=== PATIENT | male | born 1950 | race Caucasian/White ===

== ENCOUNTER 2023-01-25 15:01 | Outpatient (REF) | payer OTHER, SELFPAY ==
--- NOTE | ~2023-01-25 | US_ITS ---
EXAMINATION: US VENOUS ULTRASOUND WITH DOPPLER LOWER EXTREMITY, RIGHT CLINICAL INFORMATION: Pain right leg. COMPARISON: None available. TECHNIQUE: Ultrasound of the deep veins is performed from the hip to the calf with compression sonography and color and pulse Doppler assessment. Spectral analysis with color-flow imaging is performed. FINDINGS: There are chronic changes of thrombus visualized in the areas of right femoral proximal, mid and distal vein. No acute thrombosis seen within the common femoral, profunda, popliteal, posterior tibial and peroneal veins. Apparently patient has a known DVT and is on blood thinners. If the patient's symptoms persist, followup ultrasound in 5 days 7 days might be of value to exclude proximal propagation from a non-visualized calf vein. US/US venous duplex LE RT IMPRESSION: No acute DVT demonstrated in the right lower extremity. There is suggestion of chronic thrombus in the right superficial proximal, mid and distal segments. There are no previous exam available for comparison.
== END 2023-01-25 15:02 | disposition home or self-care (01) ==
LOC: HO.US 15:01
PROVIDERS: PCP Internal Medicine; Visit Provider Internal Medicine
DX: M79.604 Pain in right leg (principal)
CPT/HCPCS: 93971

== ENCOUNTER → 2023-02-22 09:53 | Outpatient (BNV) | payer OTHER, SELFPAY | PROVIDERS: PCP Internal Medicine; Visit Provider Internal Medicine Medical Oncology | DX: Z85.47 Personal history of malignant neoplasm of testis (principal); Z85.72 Personal history of non-Hodgkin lymphomas | CPT/HCPCS: 99204; 99213 ==

== ENCOUNTER 2023-04-19 11:49 | Outpatient (AMB) | payer OTHER, SELFPAY ==
[2023-04-19 11:50] VITALS: BMI 32.1
--- NOTE | 2023-04-19 11:50 | MHC.OFFVIS ---
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 ordered a Right LE US 01/25/23 that showed Chronic thrombus in Right LE. 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 He reports that this was a while back and was subsequently placed on Eliquis. In the interim on February 24 through the he was actually admitted to [facility]. At that time he was discovered to have a left lower extremity DVT with PE. He had undergone PE extraction by Interventional Radiology at that time. He reports he is currently doing fairly well. Is being maintained on Eliquis. He does have some mild swelling of the lower extremities. [facility] Medical History Throat cancer Cancer of neck Testicular cancer Surgical History H/O shoulder replacement (~11/24/20) Family History Father Lung cancer Mother Lung cancer Social History Household Members: Other Housing: Other Housing Other:: fpc Patient Tobacco Use Status: Never used Tobacco Substance Use Type: Marijuana service: No Current occupational status: retired Review of Systems Const All systems reviewed & are unremarkable except as noted in HPI and below Reports no additional complaints ENT Reports Normal hearing present Card Denies chest pain, Denies chest pain at rest, Denies chest pain with activity and Denies pedal edema Resp Denies cough GI Denies abdominal pain Musc Denies abnormal gait, Denies muscle cramps and Denies radiating pain into limb Skin/Breast Denies skin ulcer and Denies wounds Neuro Reports Normal hearing present and Denies abnormal gait Psych Reports no additional complaints Physical Exam Vital Signs: BMI result Body Mass Index 32.1 Const General: cooperative, healthy appearing and comfortable Orientation/consciousness: oriented to person, oriented to place and oriented to time HEENT Head: Yes normal to inspection Neck Neck: Yes normal visual inspection Carotids: no bruits Chest Chest palpation & inspection: normal inspection of the chest Resp Effort & Inspection: normal respiratory effort and able to speak in complete sentences Auscultation: clear to auscultation bilaterally, no crackles, no rales, no rhonchi and no wheezes Cardio Rate: regular rate Rhythm: regular rhythm Heart sounds: S1 normal heart sound present and S2 normal heart sound present Bruits: no carotid bruits Peripheral pulses: Peripheral pulses 2+ throughout GI Inspection: Yes normal to inspection Skin Wounds: no wounds Hair: normal Neuro General: oriented to person, oriented to place and oriented to time Cranial nerves: Yes CN's II-XII intact bilaterally and Yes Normal hearing present Cognition (Neuro): normal cognition Motor exam (neuro): 5/5 motor strength present throughout Extrem Other: venous exam: +1 edema General: No clubbing, No cyanosis and Yes edema Psych Appearance: grossly normal Mental Status: mental status grossly normal Speech and movement: Normal speech and movement present Assessment & Plan Assessment & Plan (1) DVT (deep venous thrombosis): Code(s): I82.409 - Acute embolism and thrombosis of unspecified deep veins of unspecified lower extremity Qualifiers: DVT location: lower extremity Affected thrombotic vein of extremity: unspecified vein of extremity Chronicity: chronic Laterality: unspecified laterality Qualified Code(s): I82.509 - Chronic embolism and thrombosis of unspecified deep veins of unspecified lower extremity Plan: In short patient has history of DVT with PE. He does have some underlying deep reflux just by the mere fact that he did have a DVT. In addition he has a significant cancer history which puts him at a high risk for hypercoagulable state. Would not recommend any venous interventions for him at the current time. I did discuss these findings with him and would like to manage him conservatively. We did discuss routine conservative measures including compression elevation and exercise. Will follow up with us on an as-needed basis. Thank you for allowing us to assist in his care. If there are any questions or concerns please do not hesitate to contact us. The patient had an opportunity to ask questions regarding the treatment plan. All questions were answered. Imaging studies, laboratory studies and physical exam results were discussed and reviewed in detail. No major barriers to understanding were identified. The patient expressed understanding and agreement with the above treatment plan. The patient is aware they should contact our office by phone for worsening of the current condition or the appearance of new symptoms. Thank you for allowing me to participate in the vascular care of this patient. If you have any questions or concerns regarding the treatment for the above condition please do not hesitate to contact me. The office telephone contact is [phone]. This note is constructed using voice recognition software. While every effort has been made to ensure accuracy, hides and skins colorer errors may have been included. Thank you for allowing me to participate in the care of your patient. Yours sincerely, Hardeep Ocampo MD, FACS, R.P.V.I. Coding Level of Care Code New Pt Level 4 (54367) Diagnoses Chronic deep vein thrombosis (DVT) of lower extremity, unspecified laterality, unspecified vein I82.509 DVT location: lower extremity Affected thrombotic vein of extremity: unspecified vein of extremity Chronicity: chronic Laterality: unspecified laterality
== END 2023-04-19 12:41 | disposition home or self-care (01) ==
PROVIDERS: PCP Internal Medicine; Visit Provider Surgery Vascular Surgery
DX: I82.502 Chronic embolism and thrombosis of unspecified deep veins of left lower extremity (principal); Z85.9 Personal history of malignant neoplasm, unspecified
CPT/HCPCS: 99204; 99214

== ENCOUNTER → 2023-04-19 11:49 | Outpatient (BNVA) | payer OTHER, SELFPAY | PROVIDERS: PCP Internal Medicine; Visit Provider Surgery Vascular Surgery | DX: I82.509 Chronic embolism and thrombosis of unspecified deep veins of unspecified lower extremity (principal) | CPT/HCPCS: 99202 ==

== ENCOUNTER 2023-05-04 13:31 | Outpatient (AMB) | payer OTHER, SELFPAY ==
--- NOTE | 2023-05-04 13:35 | MHC.OFFVIS ---
Intake Intake Visit Reasons: PSA/ hx of testicle cancer Intake Note: New Patient presents for initial visit for Elevated PSA, Right Orchiectomy, and history of testicle cancer Urology Medications: tamsulosin Blood Thinner: apixaban Compressor Assembler Required: No Accompanied by: Self / Same As Patient Allergies No Known Allergies Allergy (Verified 05/04/23 14:02) Medication List - Last Reconciled 05/04/23 by COLLIN Pritchard- apixaban (Eliquis) 5 mg PO BID cyclobenzaprine 10 mg PO BID PRN ibuprofen 800 mg PO BID PRN mirtazapine 30 mg PO BEDTIME olanzapine 15 mg PO BEDTIME tamsulosin 0.4 mg PO DAILY HPI HPI Comments History of Present Illness Details Pedro is a very pleasant 72-year-old male patient of Dr. Tejeda. 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 He discusses his recent hospitalization to [facility] for left lower extremity DVT with PE and underwent extraction with Interventional Radiology. He reports to be on anticoagulation and following up with vascular for this issue. In discussion with the patient today he reports having recently moved here from [place] to be closer to his children and grandchildren. He discusses having followed up with Urology in [place] in 2003 after having inguinal hernia repair due to spermatic cord cancer and has underwent right radical orchiectomy over 20 years ago. Reports to be doing and feeling well. He reports having followed up with oncology for his longstanding history of recurrent cancers which time labs were drawn and he was noted to have an elevated PSA and is here for further workup. These results were reviewed with the patient today. PSA 02/15--6.7. He denies any known family history of prostate cancer. In office TAMEKA offered however deferred. Discussed at length potential causes of elevated PSA. Discussed further workup with scrotal ultrasound given history of right orchiectomy, retroperitoneal ultrasound, and redraw of PSA with no sex the night before, no caffeine morning of, and no heavy lifting 1-2 days prior. When asked he does report a longstanding history of lower urinary tract symptoms and has been on Flomax which he has found helpful however he does feel urinating hesitancy and feelings of incomplete bladder emptying. When asked he denies incontinence, nocturia, hematuria, dysuria, foul smelling urine, flank pain, fever, and or chills. In review of patient's chart it appears Oncology has ordered tumor markers and these results were reviewed with the patient today. Lactate Dehydrogenase: 262 Alpha Fetoprotein: 3.7 Tumor Marker HCG: <5 He otherwise denies any other issues or concerns. [facility] Medical History Throat cancer Cancer of neck Testicular cancer Surgical History H/O shoulder replacement (~11/24/20) Family History Father Lung cancer Mother Lung cancer Social History Household Members: Other Housing: Other Housing Other:: alf Patient Tobacco Use Status: Never used Tobacco Substance Use Type: Marijuana service: No Current occupational status: retired Review of Systems Const Reports as per HPI Eyes Reports no additional complaints ENT Reports as per HPI Card Reports as per HPI Resp Reports as per HPI GI Reports no additional complaints Reports as per HPI Musc Reports no additional complaints Neuro Reports no additional complaints Psych Reports no additional complaints Endo Reports no additional complaints Izaiah/Lymph Reports as per HPI Aller/Immun Reports no additional complaints Physical Exam Const General: cooperative, comfortable, no acute distress, well developed, alert and awake Orientation/consciousness: patient oriented x3 Limitations: no limitations HEENT Head: Yes normal to inspection, Yes normocephalic and Yes atraumatic Ears: hearing grossly normal bilaterally Eyes General: appearance normal, both eyes and all related structures Neck Neck: Yes normal visual inspection and Yes trachea midline Chest Chest palpation & inspection: normal inspection of the chest Resp Effort & Inspection: normal respiratory effort and able to speak in complete sentences Cardio Rate: regular rate GI Inspection: Yes normal to inspection General: Yes no CVA tenderness Penis: normal penis and circumcised Meatus: meatus normal Scrotum: other Testes: other (right sided orchiectomy) Back/Spine/Pelvis Back: no CVA tenderness Skin General skin exam: no rashes or lesions noted Neuro General: patient oriented x3 Extrem General: Yes normal to inspection Psych Appearance: grossly normal and well kempt Mental Status: mental status grossly normal Speech and movement: Normal speech and movement present and Clear speech present Affect: normal affect Attitude: cooperative Thought process: Normal thought process present Thought content: Normal thought content present Insight: Fair insight present (Psych) Judgement: Fair judgement present (Psych) Results AMB Urinalysis, Automated UA Leukoctes 0 Pacheco/uL [facility] on 05/04/23 13:43 UA Nitrite Negative Last Edit by [facility], [facility] on 05/04/23 13:43 UA Urobilinogen 0.2 mg/dL Last Edit by [facility], [facility] on 05/04/23 13:43 UA Protein 0 mg/dL Last Edit by [facility], [facility] on 05/04/23 13:43 UA pH 6.0 Last Edit by [facility], [facility] on 05/04/23 13:43 UA Blood 0 Les/uL Last Edit by [facility], [facility] on 05/04/23 13:43 UA Specific [place] 1.015 Last Edit by [facility], [facility] on 05/04/23 13:43 UA Ketone Negative Last Edit by [facility], [facility] on 05/04/23 13:43 UA Bilirubin 0 mg/dL Last Edit by [facility], [facility] on 05/04/23 13:43 UA Glucose 0 mg/dL Last Edit by [facility], [facility] on 05/04/23 13:43 Results Reviewed Results Reviewed: Laboratory Last Values Urine pH (Auto) 6.0 05/04/23 13:38 Specific [place] (Auto) 1.015 05/04/23 13:38 Urine Protein (Auto) 0 mg/dL 05/04/23 13:38 Glucose (UA)(Auto) 0 mg/dL 05/04/23 13:38 Urine Ketones (Auto) Negative 05/04/23 13:38 Urine Blood (Auto) 0 Les/uL 05/04/23 13:38 Urine Nitrite (Auto) Negative 05/04/23 13:38 Urine Bilirubin (Auto) 0 mg/dL 05/04/23 13:38 Urine Urobilinogen (Auto) 0.2 mg/dL 05/04/23 13:38 Leukocyte Esterase (Auto) 0 Pacheco/uL 05/04/23 13:38 Assessment & Plan Assessment & Plan (1) Testicular carcinoma: Code(s): C62.90 - Malignant neoplasm of unspecified testis, unspecified whether descended or undescended (2) Feeling of incomplete bladder emptying: Code(s): R39.14 - Feeling of incomplete bladder emptying (3) Elevated PSA: Code(s): R97.20 - Elevated prostate specific antigen [PSA] Plan In office urinalysis results reviewed with the patient today; as noted above. Discussed obtaining scrotal ultrasound for surveillance monitoring of history of right-sided orchiectomy. Will attempt to obtain previous urology records for continuity of care; medical release form signed Discussed at length potential causes for elevated PSA. Tumor markers reviewed; as noted above. Will obtain redraw of PSA with no sex the night before, no caffeine morning of, and no heavy lifting 1-2 days prior. Increase Flomax to 0.8 mg daily as discussed and prescribed. TAMEKA offered however deferred. Will obtain retroperitoneal ultrasound for further assessment evaluation. Follow-up in 6 weeks with imaging and labs to be completed prior; or sooner with any issues, concerns, and or questions. Orders: Orders US retroperitoneal comp 05/04/23 R39.14 - Feeling of incomplete bladder emptying AMB Urinalysis Automated 05/04/23 R33.9 - Retention of urine, unspecified US scrotum 05/04/23 C62.90 - Malignant neoplasm of unspecified testis, unspecified whether descended or undescended PSA,Total (Free>4and<10) 05/04/23 R97.20 - Elevated prostate specific antigen [PSA] Medications: Changed From tamsulosin 0.4 mg PO DAILY To tamsulosin 0.8 mg (2 x 0.4 mg) PO DAILY 90 days 180 caps 0RF Patient Instructions: The patient had an opportunity to ask questions regarding the treatment plan. All questions were answered. Physical exam, labs, and imaging were discussed and reviewed in detail. As well as risks, benefits, and discussion of treatment choices. No major barriers to understanding were identified. The patient expressed understanding and agreement with the above treatment plan. The patient was made aware they should contact our office by phone for worsening of their current condition, the appearance of new symptoms, or with any questions or concerns. Compliance is encouraged with any medications and follow up testing that is ordered. It is a privilege to be allowed the opportunity to participate in? your urological care.? Again, if you have any questions or concerns If you have any questions or concerns please do not hesitate to contact me. The office is [phone]. This note is constructed using voice recognition software. While every effort has been made to ensure accuracy carbon dioxide operator errors may have been included. Yours sincerely, COLLIN Pritchard-BENEDICT Coding Level of Care Code New Pt Level 3 (12677) Diagnoses Testicular carcinoma C62.90 Feeling of incomplete bladder emptying R39.14 Elevated PSA R97.20
== END 2023-05-04 14:08 | disposition home or self-care (01) ==
PROVIDERS: PCP Internal Medicine; Visit Provider Nurse Practitioner Family
DX: C62.90 Malignant neoplasm of unspecified testis, unspecified whether descended or undescended (principal); R39.14 Feeling of incomplete bladder emptying; R97.20 Elevated prostate specific antigen [PSA]
CPT/HCPCS: 99203; 99213

== ENCOUNTER → 2023-05-04 13:31 | Outpatient (BNVA) | payer OTHER, SELFPAY | PROVIDERS: PCP Internal Medicine; Visit Provider Nurse Practitioner Family | DX: C62.90 Malignant neoplasm of unspecified testis, unspecified whether descended or undescended (principal); R39.14 Feeling of incomplete bladder emptying; R97.20 Elevated prostate specific antigen [PSA] | CPT/HCPCS: 81003; 99202 ==

== ENCOUNTER 2023-05-31 12:26 | Outpatient (REF) | payer OTHER, SELFPAY ==
--- NOTE | ~2023-05-31 | US_ITS ---
EXAMINATION: US RETROPERITONEAL COMPLETE (RENAL) CLINICAL INFORMATION: Feeling of incomplete bladder emptying. COMPARISON: None available. TECHNIQUE: Real-time imaging of the kidneys and bladder. FINDINGS: RIGHT KIDNEY: 12.4 x 7.2 x 5.5 cm (SAG x AP x TRV). The kidney is normal in size, contour, and echogenicity. Renal cortical thickness is normal. No calculi or focal parenchymal lesions. There is mild fullness in the renal pelvis but no hydronephrosis. LEFT KIDNEY: 13.7 x 6.0 x 5.1 cm (SAG x AP x TRV). The kidney is normal in size, contour, and echogenicity. Renal cortical thickness is normal. No renal calculi or hydronephrosis. Multiple benign Bosniak class I renal cysts are noted along with a single septated Bosniak class II cyst which require no additional imaging or follow-up. No solid renal masses are seen. BLADDER: Well distended and normal. Bilateral ureteral jets are demonstrated. Prevoid bladder volume is 182 mL. Postvoid bladder volume is 96.9 mL. PROSTATE: Prostate is enlarged measuring 66.4 mL in volume with a hypertrophied median lobe. US/US retroperitoneal comp IMPRESSION: BPH with a 66.4 mL prostate and 96.9 mL postvoid residual.
--- NOTE | ~2023-05-31 | US_ITS ---
EXAMINATION: US SCROTUM CLINICAL INFORMATION: Malignant neoplasm of unspecified testis, unspecified whether descended or undescended. COMPARISON: None available. TECHNIQUE: A sonogram of the scrotum was performed assessing lopez-scale appearance and color Doppler flow. Spectral Doppler analysis of the arterial and venous flow were performed in the solitary left testis. FINDINGS: RIGHT: Right testicle is surgically absent. LEFT: Left testicle measures 3.9 x 1.8 x 2.6 cm, volume 9.2 mL. No focal testicular parenchymal lesions are visualized. Spectral Doppler analysis of the arterial and venous flow is normal in the left testis. Left epididymal head is normal in size. 2 cysts are noted in the head of the epididymis measuring 2 mm and 5 mm. The epididymal tail was not well seen. There is a small left hydrocele seen. Left epididymal Doppler flow is normal. US/US scrotum IMPRESSION: 1. Status post right orchiectomy. 2. Normal-appearing left testicle. 3. Small left hydrocele.
== END 2023-05-31 12:27 | disposition home or self-care (01) ==
LOC: HO.US 12:26
PROVIDERS: PCP Internal Medicine; Visit Provider Nurse Practitioner Family
DX: C62.90 Malignant neoplasm of unspecified testis, unspecified whether descended or undescended (principal); R39.14 Feeling of incomplete bladder emptying; N43.2 Other hydrocele; Z90.79 Acquired absence of other genital organ(s)
CPT/HCPCS: 76770; 76870

== ENCOUNTER 2023-06-20 10:22 | Outpatient (AMB) | payer OTHER, SELFPAY ==
--- NOTE | 2023-06-20 11:04 | A.OFFVIS_ITS ---
Intake Intake Visit Reasons: 7w/US/PSA(set) Intake Note: Patient presents for follow up visit for Elevated PSA, Right Orchiectomy, and history of testicle cancer Urology Medications: tamsulosin Blood Thinner: apixaban Claims Adjuster Supervisor Required: No Accompanied by: Self / Same As Patient Allergies No Known Allergies Allergy (Verified 06/20/23 22:03) Medication List - Last Reconciled 06/20/23 by COLLIN Pritchard-BENEDICT apixaban (Eliquis) 5 mg PO BID cyclobenzaprine 10 mg PO BID PRN finasteride 5 mg PO DAILY 90 days ibuprofen 800 mg PO BID PRN mirtazapine 30 mg PO BEDTIME olanzapine 15 mg PO BEDTIME tamsulosin 0.8 mg (2 x 0.4 mg) PO DAILY 90 days HPI HPI Comments History of Present Illness Details Pedro is a very pleasant 72-year-old male patient of Dr. Tejeda. 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 He presents to the office today for follow-up. Of note, patient was seen approximately 6 weeks ago for an elevated PSA at which time redraw of PSA and retroperitoneal ultrasound were ordered for further assessment evaluation. These results were reviewed with the patient today. Bilateral kidneys with no calculi or hydronephrosis. Left kidney with multiple benign Bosniak class 1 renal cyst with a single septated Bosniak class 2 cyst which requires no additional follow-up imaging per radiology report. The bladder is well di stended and normal. Bilateral ureteral jets are demonstrated. Pre void bladder volume is approximately 180 mL. Postvoid bladder volume is approximately 100 mL. Prostate is enlarged measuring approximately 66 mL with a hypertrophied median lobe. PSAs are as follows: 02/15--6.7 06/16--4.2 % free PSA 18% Discussed at length potential causes of elevated PSA. PCPT risk calculator results reviewed with the patient today. 72% chance that prostate biopsy is negative for cancer, 20% chance of low-grade prostate cancer, and a% chance of high-grade prostate cancer. Discussed further treatment options with surveillance monitoring verses trial of finasteride verses prostate biopsy. 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 He reports having followed up with oncology for his longstanding history of recurrent cancers. He denies any known family history of prostate cancer. Recent scrotal ultrasound results reviewed with the patient today. Right testicle surgically absent. Normal appearing left testicle. Small left hydrocele. He currently denies any bothersome urinary issues or concerns. He reports a longstanding history of lower urinary tract symptoms however feels Flomax has been helpful with these issues. He otherwise denies incontinence, nocturia, hematuria, dysuria, foul smelling urine, flank pain, fever, and or chills. In review of patient's chart it appears Oncology has ordered tumor markers as noted below. He otherwise offers no other issues or concerns at this time. Lactate Dehydrogenase: 262 Alpha Fetoprotein: 3.7 Tumor Marker HCG: <5 PFSH Medical History Throat cancer Cancer of neck Testicular cancer Surgical History H/O shoulder replacement (~11/24/20) Family History Father Lung cancer Mother Lung cancer Social History Household Members: Other Housing: Other Housing Other:: snf Patient Tobacco Use Status: Never used Tobacco Substance Use Type: Marijuana service: No Current occupational status: retired Review of Systems Const Reports as per HPI Eyes Reports no additional complaints ENT Reports as per HPI Card Reports as per HPI Resp Reports as per HPI GI Reports no additional complaints Reports as per HPI Musc Reports no additional complaints Neuro Reports no additional complaints Psych Reports no additional complaints Endo Reports no additional complaints Izaiah/Lymph Reports as per HPI Aller/Immun Reports no additional complaints Physical Exam Const General: cooperative, healthy appearing, comfortable, no acute distress, well developed, alert and awake Orientation/consciousness: patient oriented x3 Limitations: no limitations HEENT Head: Yes normal to inspection, Yes normocephalic and Yes atraumatic Ears: hearing grossly normal bilaterally Eyes General: appearance normal, both eyes and all related structures Neck Neck: Yes normal visual inspection and Yes trachea midline Chest Chest palpation & inspection: normal inspection of the chest Resp Effort & Inspection: normal respiratory effort and able to speak in complete sentences Cardio Rate: regular rate GI Inspection: Yes normal to inspection General: Yes no CVA tenderness Penis: normal penis and circumcised Meatus: meatus normal Scrotum: other Testes: other (right sided orchiectomy) Back/Spine/Pelvis Back: no CVA tenderness Skin General skin exam: no rashes or lesions noted Neuro General: patient oriented x3 Extrem General: Yes normal to inspection Psych Appearance: grossly normal and well kempt Mental Status: mental status grossly normal Speech and movement: Normal speech and movement present and Clear speech present Affect: normal affect Attitude: cooperative Thought process: Normal thought process present Thought content: Normal thought content present Insight: Fair insight present (Psych) Judgement: Fair judgement present (Psych) Results AMB Urinalysis, Automated UA Leukoctes 0 Pacheco/uL Last Edit by [employer] on 06/20/23 11:12 UA Nitrite Negative Last Edit by [employer] on 06/20/23 11:12 UA Urobilinogen 0.2 mg/dL Last Edit by [employer] on 06/20/23 11:12 UA Protein 0 mg/dL Last Edit by [employer] on 06/20/23 11:12 UA pH 6.0 Last Edit by [employer] on 06/20/23 11:12 UA Blood 0 Les/uL Last Edit by [employer] on 06/20/23 11:12 UA Specific Olive 1.005 Last Edit by [employer] on 06/20/23 11:12 UA Ketone Negative Last Edit by [employer] on 06/20/23 11:12 UA Bilirubin 0 mg/dL Last Edit by [employer] on 06/20/23 11:12 UA Glucose 0 mg/dL Last Edit by [employer] on 06/20/23 11:12 Results Reviewed Results Reviewed: Laboratory Last Values Urine pH (Auto) 6.0 06/20/23 11:11 Specific Olive (Auto) 1.005 06/20/23 11:11 Urine Protein (Auto) 0 mg/dL 06/20/23 11:11 Glucose (UA)(Auto) 0 mg/dL 06/20/23 11:11 Urine Ketones (Auto) Negative 06/20/23 11:11 Urine Blood (Auto) 0 Les/uL 06/20/23 11:11 Urine Nitrite (Auto) Negative 06/20/23 11:11 Urine Bilirubin (Auto) 0 mg/dL 06/20/23 11:11 Urine Urobilinogen (Auto) 0.2 mg/dL 06/20/23 11:11 Leukocyte Esterase (Auto) 0 Pacheco/uL 06/20/23 11:11 Date: 05/31/2023 EXAMINATION: US RETROPERITONEAL COMPLETE (RENAL) FINDINGS: RIGHT KIDNEY: 12.4 x 7.2 x 5.5 cm (SAG x AP x TRV). The kidney is normal in size, contour, and echogenicity. Renal cortical thickness is normal. No calculi or focal parenchymal lesions. There is mild fullness in the renal pelvis but no hydronephrosis. LEFT KIDNEY: 13.7 x 6.0 x 5.1 cm (SAG x AP x TRV). The kidney is normal in size, contour, and echogenicity. Renal cortical thickness is normal. No renal calculi or hydronephrosis. Multiple benign Bosniak class I renal cysts are noted along with a single septated Bosniak class II cyst which require no additional imaging or follow-up. No solid renal masses are seen. BLADDER: Well distended and normal. Bilateral ureteral jets are demonstrated. Prevoid bladder volume is 182 mL. Postvoid bladder volume is 96.9 mL. PROSTATE: Prostate is enlarged measuring 66.4 mL in volume with a hypertrophied median lobe. IMPRESSION: BPH with a 66.4 mL prostate and 96.9 mL postvoid residual. Date of Service: 05/31/23 EXAMINATION: US SCROTUM FINDINGS: RIGHT: Right testicle is surgically absent. LEFT: Left testicle measures 3.9 x 1.8 x 2.6 cm, volume 9.2 mL. No focal testicular parenchymal lesions are visualized. Spectral Doppler analysis of the arterial and venous flow is normal in the left testis. Left epididymal head is normal in size. 2 cysts are noted in the head of the epididymis measuring 2 mm and 5 mm. The epididymal tail was not well seen. There is a small left hydrocele seen. Left epididymal Doppler flow is normal. IMPRESSION: 1. Status post right orchiectomy. 2. Normal-appearing left testicle. 3. Small left hydrocele. Assessment & Plan Assessment & Plan (1) Elevated PSA: Code(s): R97.20 - Elevated prostate specific antigen [PSA] (2) Enlarged prostate: Code(s): N40.0 - Benign prostatic hyperplasia without lower urinary tract symptoms (3) Incomplete bladder emptying: Code(s): R33.9 - Retention of urine, unspecified (4) Renal cyst: Code(s): N28.1 - Cyst of kidney, acquired (5) Testicular carcinoma: Code(s): C62.90 - Malignant neoplasm of unspecified testis, unspecified whether descended or undescended Plan In office urinalysis results reviewed with the patient today; as noted above. Recent retroperitoneal ultrasound results reviewed with the patient today; as noted above. Recent scrotal ultrasound results reviewed with the patient today; as noted above. Recent PSA results reviewed with the patient today; as noted above. Discussed at length potential causes for elevated PSA. Discussed further treatment options with surveillance monitoring verses trial of finasteride verses prostate biopsy; discussed risks and benefits of these interventions at length. Continue Flomax as patient reports to be happy with current voiding parameters. Start finasteride as discussed and prescribed. Continued follow-up with oncology as planned. Follow-up in 4 months with PSA to be completed prior; or sooner with any issues, concerns, and or questions. Orders: Orders AMB Urinalysis Automated Today Z13.9 - Encounter for screening, unspecified PSA,Total (Free>4and<10) 4 Months N40.0 - Benign prostatic hyperplasia without lower urinary tract symptoms, R97.20 - Elevated prostate specific antigen [PSA] Medications: New finasteride 5 mg PO DAILY 90 days 90 tabs 1RF N13.8 - Other obstructive and reflux uropathy, N40.1 - Benign prostatic hyperplasia with lower urinary tract symptoms, R33.9 - Retention of urine, unspecified Patient Instructions: The patient had an opportunity to ask questions regarding the treatment plan. All questions were answered. Physical exam, labs, and imaging were discussed and reviewed in detail. As well as risks, benefits, and discussion of treatment choices. No major barriers to understanding were identified. The patient expressed understanding and agreement with the above treatment plan. The patient was made aware they should contact our office by phone for worsening of their current condition, the appearance of new symptoms, or with any questions or concerns. Compliance is encouraged with any medications and follow up testing that is ordered. It is a privilege to be allowed the opportunity to participate in? your urological care.? Again, if you have any questions or concerns If you have any questions or concerns please do not hesitate to contact me. The office is [phone]. This note is constructed using voice recognition software. While every effort has been made to ensure accuracy lay out worker errors may have been included. Yours sincerely, ARTHUR Pritchard Coding Level of Care Code Est Pt Level 4 (71940) Diagnoses Elevated PSA R97.20 Enlarged prostate N40.0 Incomplete bladder emptying R33.9 Renal cyst N28.1 Testicular carcinoma C62.90
== END 2023-06-20 11:21 | disposition home or self-care (01) ==
LOC: HO.HUSH 10:22
PROVIDERS: PCP Internal Medicine; Visit Provider Nurse Practitioner Family
DX: R97.20 Elevated prostate specific antigen [PSA] (principal); N40.0 Benign prostatic hyperplasia without lower urinary tract symptoms; R33.9 Retention of urine, unspecified; N28.1 Cyst of kidney, acquired; C62.90 Malignant neoplasm of unspecified testis, unspecified whether descended or undescended
CPT/HCPCS: 99214

== ENCOUNTER → 2023-06-20 10:22 | Outpatient (BNVA) | payer OTHER, SELFPAY | PROVIDERS: PCP Internal Medicine; Visit Provider Nurse Practitioner Family | DX: R97.20 Elevated prostate specific antigen [PSA] (principal); N40.1 Benign prostatic hyperplasia with lower urinary tract symptoms; R33.8 Other retention of urine; N28.1 Cyst of kidney, acquired; C62.90 Malignant neoplasm of unspecified testis, unspecified whether descended or undescended; N13.8 Other obstructive and reflux uropathy; Z90.79 Acquired absence of other genital organ(s) | CPT/HCPCS: 81003; 99212 ==

== ENCOUNTER 2023-07-11 13:50 | Outpatient (AMB) | payer OTHER, SELFPAY ==
[2023-07-11 13:51] VITALS: BP 118/66; PULSE 76; BMI 30.8
--- NOTE | 2023-07-11 13:51 | A.OFFVIS_ITS ---
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 w/ right heart strain Intake Note: New patient Dr Tejeda dx PE with right heart strain feeling good Planning Official Required: No Allergies No Known Allergies Allergy (Verified 06/20/23 22:03) Medication List - Last Reconciled 07/11/23 by Pal Campbell MD apixaban (Eliquis) 5 mg PO BID cyclobenzaprine 10 mg PO BID PRN finasteride 5 mg PO DAILY 90 days ibuprofen 800 mg PO BID PRN mirtazapine 30 mg PO BEDTIME olanzapine 15 mg PO BEDTIME tamsulosin 0.8 mg (2 x 0.4 mg) PO DAILY 90 days HPI HPI Comments History of Present Illness Details Thank you for referring Pedro in cardiology consultation today for management of venous thromboembolic disease. He said in the past he has had deep venous thrombosis and has been on Eliquis and has been on Eliquis for many years. More recently in February a was thinking of coming of Eliquis and stop Eliquis and within few days he developed near syncopal event and up going to [facility] was diagnose with saddle pulmonary embolism with right heart strain. I do not have a copy of any testing done at [facility] during that time. Subsequently was restarted on Eliquis. Did not receive any thrombolytic treatment. Patient subsequently has done well. His repeat echocardiogram in May at [facility] as shown by ventricular normal function with normal RV size and normal RV systolic pressure. He says back to his functionality. He denies any exertional chest pain or shortness of breath. No recurrent lightheadedness or syncope. No prolonged palpitation irregular heartbeat. Currently on Eliquis 5 mg b.i.d.. He does not recall ever having and hypercoagulable workup performed. [facility] Medical History Venous thromboembolism Throat cancer Cancer of neck Testicular cancer Surgical History H/O shoulder replacement (~11/24/20) Family History Father Lung cancer Mother Lung cancer Social History Household Members: Other Housing: Other Housing Other:: usp Patient Tobacco Use Status: Never used Tobacco Substance Use Type: Marijuana service: No Current occupational status: retired Review of Systems Const Denies chills, Denies daytime sleepiness, Denies fatigue, Denies fever(s), Denies frequent falls, Denies poor appetite, Denies snoring, Denies stops breathing during sleep, Denies weakness, Denies weight gain and Denies weight loss Eyes Denies loss of vision ENT Denies dizziness and Denies hearing loss Card Denies chest pain, Denies claudication, Denies leg edema, Denies lightheadedness, Denies palpitations, Denies dyspnea, Denies dyspnea on exertion and Denies orthopnea Resp Denies cough, Denies excessive phlegm production, Denies dyspnea, Denies dyspnea on exertion, Denies snoring and Denies wheezing GI Denies abdominal pain, Denies hematochezia, Denies change in bowel habits, Denies nausea and Denies vomiting Denies dysuria and Denies urinary frequency Musc Denies arthralgias, Denies muscle weakness, Denies numbness and Denies other (frequent falls) Skin/Breast Denies nail changes and Denies rash Neuro Denies Abnormal speech present, Denies dizziness, Denies frequent falls, Denies loss of vision, Denies memory loss, Denies numbness and Denies weakness Psych Denies depression and Denies memory loss Endo Denies fatigue and Denies palpitations Izaiah/Lymph Reports easy bruising and Reports other (anemia) Aller/Immun Denies wheezing Physical Exam Vital Signs: Last Vital Signs Pulse 76 07/11/23 13:51 BP 118/66 07/11/23 13:51 BMI result Body Mass Index 30.8 Const General: cooperative, comfortable, no acute distress, alert, awake and Physically active Nutritional Appearance: overweight Orientation/consciousness: patient oriented x3 Limitations: no limitations HEENT Head: Yes normocephalic and Yes atraumatic Neck Neck: Yes trachea midline, Yes supple and Yes no JVD Resp Effort & Inspection: normal respiratory effort Auscultation: clear to auscultation bilaterally Cardio Jugular venous distension: no JVD Palpation: normal PMI Rate: regular rate Rhythm: regular rhythm Heart sounds: S1 normal heart sound present, S2 normal heart sound present, no click, no gallops, no murmurs and no rubs GI Auscultation: normal bowel sounds Skin General skin exam: no rashes or lesions noted Neuro General: patient oriented x3 and no focal motor deficits Speech: No Abnormal speech present Extrem General: Yes no clubbing, cyanosis or edema Office Procedures EKG Details: EKG shows normal sinus rhythm first-degree AV block with left anterior fascicular block with poor R-wave progression most likely lead placement [id number], Complete Assessment & Plan Assessment & Plan (1) Venous thromboembolism: Comment: Unprovoked saddle pulmonary embolism after patient came off oral anticoagulation with Eliquis with right side is strain. 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 He survived this. Subsequent follow-up echocardiogram shows normalized LV size and systolic function. This event appears to be unprovoked and only related to patient coming off the blood thinners. Workup for hypercoagulable state needs to be pursued. Have sent a message to his oncologist to pursue this workup as this may be important from genetic and familial perspective. This was discussed with him. I think he should be on lifelong oral anticoagulation therapy without interruption. Discussed with him about the same. No further cardiac workup is indicated at this point time. Will follow up in the clinic if need be. Thank you for allowing me to partake in his care Coding Level of Care Code New Pt Level 4 (05445) Diagnoses Venous thromboembolism I82.90 CPT Codes EKG - CPT: 74419-[id number], Complete ([id number])
== END 2023-07-11 14:11 | disposition home or self-care (01) ==
PROVIDERS: PCP Internal Medicine; Visit Provider Internal Medicine Cardiovascular Disease
DX: I82.90 Acute embolism and thrombosis of unspecified vein (principal)
CPT/HCPCS: 93010; 99204

== ENCOUNTER → 2023-07-11 13:50 | Outpatient (BNVA) | payer OTHER, SELFPAY | PROVIDERS: PCP Internal Medicine; Visit Provider Internal Medicine Cardiovascular Disease | DX: I82.90 Acute embolism and thrombosis of unspecified vein (principal) | CPT/HCPCS: 93005; 99202 ==

== ENCOUNTER 2023-10-05 10:09 | Outpatient (REF) | payer OTHER, SELFPAY ==
[2023-10-05 10:35] LABS: MANUAL DIFF FLAG NO
[2023-10-05 10:38] LABS: Basophils Percent Auto 0.2 % (0-2); Eosinophils Absolute Auto 0.1 X10*3/uL (0.0-0.4); Eosinophils Percent Auto 1.2 % (0-4); Hematocrit 43.6 % (42.0-52.0); Hemoglobin 15.3 g/dl (14.0-18.0); Imm Gran Abs Auto 0.01 X10*3/uL (0.00-0.03); Imm Gran Pct Auto 0.2 % (0.0-0.4); Lymphocytes Absolute Auto 1.5 X10*3/uL (1.2-4.9); Lymphocytes Percent Auto 30.5 % (20-40); Mean Corpuscular HGB Conc 35.1 g/dl (31.0-36.0); Mean Corpuscular Hemoglobin 29.7 pg (27.0-33.0); Mean Corpuscular Volume 84.5 fL (80.0-98.0); Mean Platelet Volume 9.1 fL (9.4-12.4); Monocytes Absolute Auto 0.4 X10*3/uL (0.1-1.2); Monocytes Percent Auto 7.3 % (2-11); Neutrophils Absolute Auto 3.1 x10*3/uL (2.0-8.3); Neutrophils Percent Auto 60.6 % (45-73); Platelet Count 183 X10*3/uL (160-400); Red Blood Count 5.16 X10*6/uL (4.60-5.80); Red Cell Distribution Width 13.2 % (11.0-16.0); White Blood Count 5.1 X10*3/uL (4.8-10.8)
[2023-10-05 10:42] LABS: INTERNATIONAL NORM RATIO 1.2 (0.9-1.1); Prothrombin Time 14.6 SEC (11.1-13.3)
[2023-10-05 10:45] LABS: Partial Thromboplastin Time 37.7 SEC (26.0-36.8)
[2023-10-05 10:59] LABS: Alanine Aminotransferase 20 U/L (0-40); Albumin Level 4.3 g/dL (3.5-5.0); Alkaline Phosphatase 79 U/L (39-117); Anion Gap 13 (12-20); Aspartate Amino Transferase 20 U/L (5-37); Bilirubin Total 0.6 mg/dL (0.0-1.0); Blood Urea Nitrogen 16 mg/dL (9-16); Calcium 9.5 mg/dL (8.4-10.2); Carbon Dioxide 25 mmol/L (22-29); Chloride 107 mmol/L (96-108); Estimated Glomerular Filt Rate > 60; Glucose Random 124 mg/dL (60-115); Lactate Dehydrogenase 168 U/L (118-273); Potassium 4.3 mmol/L (3.3-5.1); Sodium 141 mmol/L (135-145); Total Protein 7.3 g/dL (6.5-8.0)
[2023-10-05 11:23] LABS: PSA,Total (Free>4and<10) 2.67 ng/mL (0.00-4.00)
[2023-10-08 20:44] LABS: Cardiolipin IgG Ab <2.0 GPL-U/mL; Cardiolipin IgM Ab <2.0 MPL-U/mL
[2023-10-09 12:34] LABS: Alpha Fetoprotein 4.7 ng/mL (<6.1)
[2023-10-11 22:39] LABS: Protein S Activity rflx Tot&Fr 132 % normal (70-150)
[2023-10-11 23:09] LABS: DRVVT Confirmation Negative (Negative); Hexagonal Phase Neutralization Negative (Negative); PTT (LAC) Screen 43 sec (<=40)
[2023-10-12 01:33] LABS: Anti-Thrombin III Antigen 122 % normal (80-120)
[2023-10-12 06:09] LABS: Protein C Activity >200 % normal (70-180)
[2023-10-12 21:04] LABS: Prothrombin 20210A POSITIVE
[2023-10-12 21:54] LABS: Factor V Leiden NEGATIVE
== END 2023-10-05 10:10 | disposition home or self-care (01) ==
LOC: HO.LAB 10:09
PROVIDERS: Internal Medicine Medical Oncology; PCP Internal Medicine; Visit Provider Nurse Practitioner Family
DX: C62.90 Malignant neoplasm of unspecified testis, unspecified whether descended or undescended (principal); I82.90 Acute embolism and thrombosis of unspecified vein; R97.20 Elevated prostate specific antigen [PSA]; Z12.5 Encounter for screening for malignant neoplasm of prostate
CPT/HCPCS: 36415; 80053; 81240; 81241; 82105; 83090; 83615; 84153; 85025; 85301; 85302; 85303; 85306; 85597; 85598; 85610; 85613; 85730; 86147

== ENCOUNTER 2023-10-19 10:20 | Outpatient (AMB) | payer OTHER, SELFPAY ==
--- NOTE | 2023-10-19 10:26 | MHC.OFFVIS ---
Intake Visit Reasons: 4m/PSA Intake Note: Patient presents today for follow up visit on: Prostate Cancer, Elevated PSA, Retention Urology Medications: tamsulosin, finasteride Blood Thinner: apixaban PVR: 112ml's Crossing Guard Required: No Accompanied by: Self / Same As Patient Allergies No Known Allergies Allergy (Verified 10/19/23 10:58) HPI Comments Details: Pedro is a very pleasant 72-year-old male patient of Dr. Tejeda. 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 He presents to the office today for follow-up of his elevated PSA and history of testicular cancer. In discussion with the patient today reports to be doing and feeling well. He denies any bothersome urinary issues or concerns. Recent PSA results reviewed with the patient today. He reports compliance with finasteride and Flomax as prescribed. Previous workup has included a retroperitoneal ultrasound noting bilateral kidneys with no calculi or hydronephrosis. Left kidney with multiple benign Bosniak class 1 renal cyst with a single septated Bosniak class 2 cyst which requires no additional follow-up imaging per radiology report. The bladder is well distended and normal. Bilateral ureteral jets are demonstrated. Pre void bladder volume is approximately 180 mL. Postvoid bladder volume is approximately 100 mL. Prostate is enlarged measuring approximately 66 mL with a hypertrophied median lobe. PSAs are as follows: 02/15 6.7, 06/16 4.2 % free PSA 18%, 10/16 2.8 Discussed at length potential causes of elevated PSA. 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 He reports having followed up with oncology for his longstanding history of recurrent cancers. He denies any known family history of prostate cancer. Patient with previous scrotal ultrasound noting right testicle surgically absent. Normal appearing left testicle. Small left hydrocele. He currently denies any bothersome urinary issues or concerns. He reports a longstanding history of lower urinary tract symptoms however feels Flomax has been helpful with these issues. He otherwise denies incontinence, nocturia, hematuria, dysuria, foul smelling urine, flank pain, fever, and or chills. In office urinalysis results reviewed with the patient today. In review of patient's chart it appears Oncology has ordered tumor markers as noted below. He otherwise offers no other issues or concerns at this time. Lactate Dehydrogenase: 262 Alpha Fetoprotein: 3.7 Tumor Marker HCG: <5 PFSH Medical History Venous thromboembolism Throat cancer Cancer of neck Testicular cancer Surgical History H/O shoulder replacement (~11/24/20) Family History Father Lung cancer Mother Lung cancer Social History Household Members: Other Housing: Other Housing Other:: care home Patient Tobacco Use Status: Never used Tobacco Substance Use Type: Marijuana service: No Current occupational status: retired Review of Systems Const Reports as per HPI Eyes Reports no additional complaints ENT Reports as per HPI Card Reports as per HPI Resp Reports as per HPI GI Reports no additional complaints Reports as per HPI Musc Reports no additional complaints Neuro Reports no additional complaints Psych Reports no additional complaints Endo Reports no additional complaints Izaiah/Lymph Reports as per HPI Aller/Immun Reports no additional complaints Physical Exam Const General: cooperative, healthy appearing, comfortable, no acute distress, well developed, alert and awake Orientation/consciousness: patient oriented x3 Limitations: no limitations HEENT Head: Yes normal to inspection, Yes normocephalic and Yes atraumatic Ears: hearing grossly normal bilaterally Eyes General: appearance normal, both eyes and all related structures Neck Neck: Yes normal visual inspection and Yes trachea midline Chest Chest palpation & inspection: normal inspection of the chest Resp Effort & Inspection: normal respiratory effort and able to speak in complete sentences Cardio Rate: regular rate GI Inspection: Yes normal to inspection General: Yes no CVA tenderness Penis: normal penis and circumcised Meatus: meatus normal Scrotum: other Testes: other (right sided orchiectomy) Back/Spine/Pelvis Back: no CVA tenderness Skin General skin exam: no rashes or lesions noted Neuro General: patient oriented x3 Extrem General: Yes normal to inspection Psych Appearance: grossly normal and well kempt Mental Status: mental status grossly normal Speech and movement: Normal speech and movement present and Clear speech present Affect: normal affect Attitude: cooperative Thought process: Normal thought process present Thought content: Normal thought content present Insight: Fair insight present (Psych) Judgement: Fair judgement present (Psych) Office Procedures Post Void Residual Post Residual Void Post Void Residual (PVR): 112 [id number] Void Residual by ultrasound Results AMB Urinalysis, Automated UA Leukoctes 0 Pacheco/uL Last Edit by [employer] on 10/19/23 10:45 UA Nitrite Last Edit by [employer] on 10/19/23 10:45 UA Urobilinogen 0.2 mg/dL Last Edit by [employer] on 10/19/23 10:45 UA Protein 0 mg/dL Last Edit by [employer] on 10/19/23 10:45 UA pH 7.0 Last Edit by [employer] on 10/19/23 10:45 UA Blood 0 Les/uL Last Edit by [employer] on 10/19/23 10:45 UA Specific [place] 1.010 Last Edit by [employer] on 10/19/23 10:45 UA Ketone Last Edit by [employer] on 10/19/23 10:45 UA Bilirubin 0 mg/dL Last Edit by [employer] on 10/19/23 10:45 UA Glucose 0 mg/dL Last Edit by [employer] on 10/19/23 10:45 Results Reviewed Results Reviewed: Laboratory Last Values Urine pH (Auto) 7.0 10/19/23 10:34 Specific [place] (Auto) 1.010 10/19/23 10:34 Urine Protein (Auto) 0 mg/dL 10/19/23 10:34 Glucose (UA)(Auto) 0 mg/dL 10/19/23 10:34 Urine Blood (Auto) 0 Les/uL 10/19/23 10:34 Urine Bilirubin (Auto) 0 mg/dL 10/19/23 10:34 Urine Urobilinogen (Auto) 0.2 mg/dL 10/19/23 10:34 Leukocyte Esterase (Auto) 0 Pacheco/uL 10/19/23 10:34 Assessment & Plan Assessment & Plan (1) Elevated PSA: Code(s): R97.20 - Elevated prostate specific antigen [PSA] Category: Medical Plan In office urinalysis results reviewed with the patient today; as noted above. PVR 112 mLs. Patient reports compliance with finasteride and Flomax as prescribed. Recent PSA results reviewed with the patient today; as noted above. Discussed surveillance monitoring of PSA. Continue follow-up with Oncology as planned. He denies any bothersome urinary issues or concerns. He reports be happy with current voiding parameters. Will obtain PSA in 4 months. Follow-up in 4 months with lab to be completed prior; or sooner with any issues, concerns, and or questions. Orders: Orders AMB Post Void Residual by ultrasound Today R33.9 - Retention of urine, unspecified AMB Urinalysis Automated Today Z13.9 - Encounter for screening, unspecified Prostate Specific Antigen 4 Months R97.20 - Elevated prostate specific antigen [PSA] Patient Instructions: The patient had an opportunity to ask questions regarding the treatment plan. All questions were answered. Physical exam, labs, and imaging were discussed and reviewed in detail. As well as risks, benefits, and discussion of treatment choices. No major barriers to understanding were identified. The patient expressed understanding and agreement with the above treatment plan. The patient was made aware they should contact our office by phone for worsening of their current condition, the appearance of new symptoms, or with any questions or concerns. Compliance is encouraged with any medications and follow up testing that is ordered. It is a privilege to be allowed the opportunity to participate in? your urological care.? Again, if you have any questions or concerns If you have any questions or concerns please do not hesitate to contact me. The office is [phone]. This note is constructed using voice recognition software. While every effort has been made to ensure accuracy aircraft communicator errors may have been included. Yours sincerely, ARTHUR Pritchard Coding Level of Care Code Est Pt Level 3 (00657) Complex EM visit Add On G2211 Diagnoses Elevated PSA R97.20 CPT Codes Post Residual Void - PVR CPT Code: 45207-Jmpw Void Residual by ultrasound ([id number])
== END 2023-10-19 11:00 | disposition home or self-care (01) ==
PROVIDERS: PCP Internal Medicine; Visit Provider Nurse Practitioner Family
DX: Z13.9 Encounter for screening, unspecified (principal); R97.20 Elevated prostate specific antigen [PSA]
CPT/HCPCS: 99213; G2211

== ENCOUNTER → 2023-10-19 10:20 | Outpatient (BNVA) | payer OTHER, SELFPAY | PROVIDERS: PCP Internal Medicine; Visit Provider Nurse Practitioner Family | DX: R97.20 Elevated prostate specific antigen [PSA] (principal) | CPT/HCPCS: 51798; 81003; 99212 ==

== ENCOUNTER 2024-02-19 09:47 | Outpatient (REF) | payer OTHER, SELFPAY ==
[2024-02-19 11:33] LABS: Prostate Specific Antigen 1.93 ng/mL (<0.05-4.0)
== END 2024-02-19 09:48 | disposition home or self-care (01) ==
LOC: HO.LAB 09:47
PROVIDERS: PCP Internal Medicine; Visit Provider Nurse Practitioner Family
DX: R97.20 Elevated prostate specific antigen [PSA] (principal); Z12.5 Encounter for screening for malignant neoplasm of prostate
CPT/HCPCS: 36415; 84153

== ENCOUNTER 2024-02-19 14:40 | Outpatient (AMB) | payer OTHER, SELFPAY ==
--- NOTE | 2024-02-19 15:00 | A.OFFVIS_ITS ---
Intake Visit Reasons: 4m/PSA Intake Note: Patient presents today for follow up visit on: Prostate Cancer, Elevated PSA, and psa lab results PSA: 1.93 Urology Medications: tamsulosin, finasteride Blood Thinner: apixaban Optical Fab[employer]ator Required: No Accompanied by: Self / Same As Patient Allergies No Known Allergies Allergy (Verified 02/19/24 15:09) Medication List - Last Reconciled 02/19/24 by ARTHUR Pritchard apixaban (Eliquis) 5 mg PO BID cyclobenzaprine 10 mg PO BID PRN finasteride 5 mg PO DAILY 90 days ibuprofen 800 mg PO BID PRN mirtazapine 30 mg PO BEDTIME olanzapine 15 mg PO BEDTIME sertraline 50 mg PO DAILY tamsulosin 0.8 mg (2 x 0.4 mg) PO DAILY 90 days HPI Comments Details: Pedro is a very pleasant 73-year-old male patient of Dr. Tejeda. 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 He is being followed up on today via telehealth for his history of an elevated PSA and testicular cancer. In discussion with the patient today reports to be doing and feeling well. He reports compliance with Flomax and finasteride as prescribed. He currently denies any bothersome urinary issues or concerns. Recent PSA results reviewed with the patient today as noted and trended below. Previous workup has included a retroperitoneal ultrasound noting bilateral kidneys with no calculi or hydronephrosis. Left kidney with multiple benign Bosniak class 1 renal cyst with a single septated Bosniak class 2 cyst which requires no additional follow-up imaging per radiology report. The bladder is well distended and normal. Bilateral ureteral jets are demonstrated. Pre void bladder volume is approximately 180 mL. Postvoid bladder volume is approximately 100 mL. Prostate is enlarged measuring approximately 66 mL with a hypertrophied median lobe. PSAs are as follows: 02/15 6.7, 06/16 4.2 % free PSA 18%, 10/16 2.8, 02/16 1.9 Discussed significant drop in PSA over the last year. 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 He reports having followed up with oncology for his longstanding history of recurrent cancers. He denies any known family history of prostate cancer. Patient with previous scrotal ultrasound 06/16 noting right testicle surgically absent. Normal appearing left testicle. Small left hydrocele. He currently denies any bothersome urinary issues or concerns. He reports a longstanding history of lower urinary tract symptoms however feels Flomax has been helpful with these issues. He otherwise denies incontinence, nocturia, hematuria, dysuria, foul smelling urine, flank pain, fever, and or chills. In review of patient's chart it appears Oncology has ordered tumor markers as noted below. He otherwise offers no other issues or concerns at this time. Lactate Dehydrogenase: 262 Alpha Fetoprotein: 3.7 Tumor Marker HCG: <5 PFSH Medical History Venous thromboembolism Throat cancer Cancer of neck Testicular cancer Surgical History H/O shoulder replacement (~11/24/20) Family History Father Lung cancer Mother Lung cancer Social History Household Members: Other Housing: Other Housing Other:: [facility] Patient Tobacco Use Status: Never used Tobacco Substance Use Type: Marijuana service: No Current occupational status: retired Review of Systems Const Reports as per HPI Eyes Reports no additional complaints ENT Reports as per HPI Card Reports as per HPI Resp Reports as per HPI GI Reports no additional complaints Reports as per HPI Musc Reports no additional complaints Neuro Reports no additional complaints Psych Reports no additional complaints Endo Reports no additional complaints Izaiah/Lymph Reports as per HPI Aller/Immun Reports no additional complaints Physical Exam Const General: cooperative Orientation/consciousness: patient oriented x3 Resp Effort & Inspection: able to speak in complete sentences Neuro General: patient oriented x3 Psych Speech and movement: Clear speech present Affect: normal affect Attitude: cooperative Thought content: Normal thought content present Insight: Fair insight present (Psych) Judgement: Fair judgement present (Psych) Telehealth Telehealth Telehealth Platform: YesWeAd Location of provider rendering services: practice address Location of patient: address on file Patient Identification confirmed using: Name, : Yes Telehealth method: voice only Patient verbally consented to treatment: Yes Patient verbally consented to billing insurance company: Yes Patient informed of any privacy concerns related to visit: Yes Minutes spent on Phone/Video with Pt.: 15 Assessment & Plan Assessment & Plan (1) Elevated PSA: Code(s): R97.20 - Elevated prostate specific antigen [PSA] Category: Medical Plan Patient currently denies any bothersome urinary issues or concerns. Continue finasteride and Flomax as prescribed. Recent PSA results reviewed with the patient today; as noted above Discussed surveillance monitoring of PSA. Continue follow-up with Oncology as planned. He denies any bothersome urinary issues or concerns. He reports be happy with current voiding parameters. Will obtain PSA in months. Follow-up in 6 months with lab to be completed prior; or sooner with any issues, concerns, and or questions. Patient Instructions: The patient had an opportunity to ask questions regarding the treatment plan. All questions were answered. Physical exam, labs, and imaging were discussed and reviewed in detail. As well as risks, benefits, and discussion of treatment choices. No major barriers to understanding were identified. The patient expressed understanding and agreement with the above treatment plan. The patient was made aware they should contact our office by phone for worsening of their current condition, the appearance of new symptoms, or with any questions or concerns. Compliance is encouraged with any medications and follow up testing that is ordered. It is a privilege to be allowed the opportunity to participate in? your urological care.? Again, if you have any questions or concerns If you have any questions or concerns please do not hesitate to contact me. The office is [phone]. This note is constructed using voice recognition software. While every effort has been made to ensure accuracy staff developer errors may have been included. Yours sincerely, ARTHUR Pritchard Coding Level of Care Code Tele Est Pt Level 3 (11071) Diagnoses Elevated PSA R97.20
== END 2024-02-19 15:13 | disposition home or self-care (01) ==
LOC: HO.HUSH 14:40
PROVIDERS: PCP Internal Medicine; Visit Provider Nurse Practitioner Family
DX: R97.20 Elevated prostate specific antigen [PSA] (principal)
CPT/HCPCS: 99213

== ENCOUNTER 2024-08-14 09:49 | Outpatient (REF) | payer MEDICARE, MEDICAID, SELFPAY ==
[2024-08-14 10:07] LABS: MANUAL DIFF FLAG NO
[2024-08-14 10:10] LABS: Basophils Percent Auto 0.2 % (0-2); Eosinophils Absolute Auto 0.1 X10*3/uL (0.0-0.4); Hematocrit 41.7 % (42.0-52.0); Hemoglobin 14.5 g/dl (14.0-18.0); Imm Gran Abs Auto 0.01 X10*3/uL (0.00-0.03); Imm Gran Pct Auto 0.2 % (0.0-0.4); Lymphocytes Absolute Auto 1.3 X10*3/uL (1.2-4.9); Lymphocytes Percent Auto 24.1 % (20-40); Mean Corpuscular HGB Conc 34.8 g/dl (31.0-36.0); Mean Corpuscular Hemoglobin 29.2 pg (27.0-33.0); Mean Corpuscular Volume 84.1 fL (80.0-98.0); Mean Platelet Volume 9.4 fL (9.4-12.4); Monocytes Absolute Auto 0.4 X10*3/uL (0.1-1.2); Monocytes Percent Auto 7.7 % (2-11); Neutrophils Absolute Auto 3.7 x10*3/uL (2.0-8.3); Neutrophils Percent Auto 65.8 % (45-73); Platelet Count 224 X10*3/uL (160-400); Red Blood Count 4.96 X10*6/uL (4.60-5.80); Red Cell Distribution Width 13.4 % (11.0-16.0); White Blood Count 5.6 X10*3/uL (4.8-10.8)
[2024-08-14 11:00] LABS: Alanine Aminotransferase 41 U/L (0-40); Albumin Level 4.1 g/dL (3.5-5.0); Anion Gap 13 (12-20); Aspartate Amino Transferase 23 U/L (5-37); Bilirubin Total 0.3 mg/dL (0.0-1.0); Blood Urea Nitrogen 14 mg/dL (9-16); Calcium 9.8 mg/dL (8.4-10.2); Carbon Dioxide 26 mmol/L (22-29); Chloride 109 mmol/L (96-108); Estimated Glomerular Filt Rate > 60; Glucose Random 105 mg/dL (60-115); Potassium 4.5 mmol/L (3.3-5.1); Sodium 143 mmol/L (135-145)
[2024-08-14 12:20] LABS: Alkaline Phosphatase 98 U/L (39-117)
[2024-08-14 14:05] LABS: Prostate Specific Antigen 2.32 ng/mL (<0.05-4.0)
== END 2024-08-14 09:50 | disposition home or self-care (01) ==
LOC: HO.LAB 09:49
PROVIDERS: Internal Medicine Medical Oncology; Nurse Practitioner Family; PCP Internal Medicine; Visit Provider Urology
DX: I82.409 Acute embolism and thrombosis of unspecified deep veins of unspecified lower extremity (principal); Z12.5 Encounter for screening for malignant neoplasm of prostate
CPT/HCPCS: 36415; 80053; 84153; 85025

== ENCOUNTER 2024-08-20 10:38 | Outpatient (AMB) | payer MEDICARE, MEDICAID, SELFPAY ==
--- NOTE | 2024-08-20 10:45 | MHC.OFFVIS ---
Intake Visit Reasons: 6m/PSA/PVR(set) Intake Note: Patient presents today for a 6 month follow up/PSA/PVR PSA: 2.32 Urology Medications: tamsulosin, finasteride Blood Thinner: apixaban PVR: 66ml Em Physician Required: No Accompanied by: Self / Same As Patient Allergies No Known Allergies Allergy (Verified 08/20/24 11:21) Medication List - Last Reconciled 08/20/24 by COLLIN Pritchard- apixaban (Eliquis) 5 mg PO BID cyclobenzaprine 10 mg PO BID PRN finasteride 5 mg PO DAILY 90 days ibuprofen 800 mg PO BID PRN mirtazapine 30 mg PO BEDTIME olanzapine 15 mg PO BEDTIME sertraline 50 mg PO DAILY tamsulosin 0.8 mg (2 x 0.4 mg) PO DAILY 90 days HPI Comments Details: Pedro is a very pleasant 73-year-old male patient of Dr. Tejeda. 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 He presents to the office today for follow-up of his elevated PSA and history of testicular cancer. In discussion with the patient today he reports to be doing and feeling well. He denies having had any bothersome urinary issues or concerns since his last visit. He reports compliance with Flomax and finasteride as prescribed. He currently denies any bothersome urinary issues or concerns. Recent PSA results reviewed with the patient today as noted and trended below. Previous workup has included a retroperitoneal ultrasound 06/16 noting bilateral kidneys with no calculi or hydronephrosis. Left kidney with multiple benign Bosniak class 1 renal cyst with a single septated Bosniak class 2 cyst which requires no additional follow-up imaging per radiology report. The bladder is well distended and normal. Bilateral ureteral jets are demonstrated. Pre void bladder volume is approximately 180 mL. Postvoid bladder volume is approximately 100 mL. Prostate is enlarged measuring approximately 66 mL with a hypertrophied median lobe. PSAs are as follows: 02/15 6.7, 06/16 4.2 % free PSA 18%, 10/16 2.8, 02/16 1.9, 08/17 2.3 Discussed slight increase PSA. 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 He reports having followed up with oncology for his longstanding history of recurrent cancers. He denies any known family history of prostate cancer. Patient with previous scrotal ultrasound 06/16 noting right testicle surgically absent. Normal appearing left testicle. Small left hydrocele. He currently denies any bothersome urinary issues or concerns. He reports a longstanding history of lower urinary tract symptoms however feels Flomax has been helpful with these issues. He otherwise denies incontinence, nocturia, hematuria, dysuria, foul smelling urine, flank pain, fever, and or chills. In review of patient's chart it appears Oncology has ordered tumor markers as noted below. In office urinalysis results reviewed with the patient today. PVR 66 mL. He otherwise offers no other issues or concerns at this time. Lactate Dehydrogenase: 262 Alpha Fetoprotein: 3.7 Tumor Marker HCG: <5 PFSH Medical History Venous thromboembolism Throat cancer Cancer of neck Testicular cancer Surgical History H/O shoulder replacement (~11/24/20) Family History Father Lung cancer Mother Lung cancer Social History Household Members: Other Housing: Other Housing Other:: long-term Patient Tobacco Use Status: Never used Tobacco Substance Use Type: Marijuana service: No Current occupational status: retired Review of Systems Const Reports as per HPI Eyes Reports no additional complaints ENT Reports as per HPI Card Reports as per HPI Resp Reports as per HPI GI Reports no additional complaints Reports as per HPI Musc Reports no additional complaints Neuro Reports no additional complaints Psych Reports no additional complaints Endo Reports no additional complaints Izaiah/Lymph Reports as per HPI Aller/Immun Reports no additional complaints Physical Exam Const General: cooperative, healthy appearing, comfortable, no acute distress, well developed, alert and awake Orientation/consciousness: patient oriented x3 Limitations: no limitations HEENT Head: Yes normal to inspection, Yes normocephalic and Yes atraumatic Ears: hearing grossly normal bilaterally Eyes General: appearance normal, both eyes and all related structures Neck Neck: Yes normal visual inspection and Yes trachea midline Chest Chest palpation & inspection: normal inspection of the chest Resp Effort & Inspection: normal respiratory effort and able to speak in complete sentences Cardio Rate: regular rate GI Inspection: Yes normal to inspection General: Yes no CVA tenderness Penis: normal penis and circumcised Meatus: meatus normal Scrotum: other Testes: other (right sided orchiectomy) Back/Spine/Pelvis Back: no CVA tenderness Skin General skin exam: no rashes or lesions noted Neuro General: patient oriented x3 Extrem General: Yes normal to inspection Psych Appearance: grossly normal and well kempt Mental Status: mental status grossly normal Speech and movement: Normal speech and movement present and Clear speech present Affect: normal affect Attitude: cooperative Thought process: Normal thought process present Thought content: Normal thought content present Insight: Fair insight present (Psych) Judgement: Fair judgement present (Psych) Results AMB Urinalysis, Automated UA Leukoctes 0 [place]/uL Last Edit by Milla Mendoza on 08/20/24 10:55 UA Nitrite Negative Last Edit by Milla Mendoza on 08/20/24 10:55 UA Urobilinogen 3.5 mg/dL Last Edit by Milla Mendoza on 08/20/24 10:55 UA Protein 1 mg/dL Last Edit by Milla Mendoza on 08/20/24 10:55 UA pH 6.0 Last Edit by Milla Mendoza on 08/20/24 10:55 UA Blood 0 Les/uL Last Edit by Milla Mendoza on 08/20/24 10:55 UA Specific [place] 1.015 Last Edit by Milla Mendoza on 08/20/24 10:55 UA Ketone Negative Last Edit by Milla Mendoza on 08/20/24 10:55 UA Bilirubin 0 mg/dL Last Edit by Milla Mendoza on 08/20/24 10:55 UA Glucose 0 mg/dL Last Edit by Milla Mendoza on 08/20/24 10:55 Results Reviewed Results Reviewed: Laboratory Last Values Urine pH (Auto) 6.0 08/20/24 10:09 Specific [place] (Auto) 1.015 08/20/24 10:09 Urine Protein (Auto) 1 mg/dL 08/20/24 10:09 Glucose (UA)(Auto) 0 mg/dL 08/20/24 10:09 Urine Ketones (Auto) Negative 08/20/24 10:09 Urine Blood (Auto) 0 Les/uL 08/20/24 10:09 Urine Nitrite (Auto) Negative 08/20/24 10:09 Urine Bilirubin (Auto) 0 mg/dL 08/20/24 10:09 Urine Urobilinogen (Auto) 3.5 mg/dL 08/20/24 10:09 Leukocyte Esterase (Auto) 0 [place]/uL 08/20/24 10:09 Assessment & Plan Assessment & Plan (1) Elevated PSA: Code(s): R97.20 - Elevated prostate specific antigen [PSA] Category: Medical (2) Enlarged prostate: Code(s): N40.0 - Benign prostatic hyperplasia without lower urinary tract symptoms Category: Medical (3) Renal cyst: Code(s): N28.1 - Cyst of kidney, acquired Category: Medical (4) Incomplete bladder emptying: Code(s): R33.9 - Retention of urine, unspecified Category: Medical (5) Testicular carcinoma: Code(s): C62.90 - Malignant neoplasm of unspecified testis, unspecified whether descended or undescended Category: Medical Plan In office urinalysis results reviewed with the patient today; as noted above. PVR 66 mL. Recent PSA results reviewed with the patient today; as noted above. Continue Flomax and finasteride as prescribed. Patient currently denies any bothersome urinary issues or concerns. He reports be happy with current voiding parameters. We did discussed slight increase in PSA and potential causes as well as further treatment options and risks and benefits of these treatment options. Will continue with surveillance monitoring. Will obtain PSA in 6 months Follow-up in 6 months with PSA to be completed prior; or sooner with any issues, concerns, and or questions. Orders: Orders Prostate Specific Antigen 08/14/24 Z12.5 - Encounter for screening for malignant neoplasm of prostate AMB Urinalysis Automated Today Z13.9 - Encounter for screening, unspecified AMB Post Void Residual by ultrasound Today R33.9 - Retention of urine, unspecified Prostate Specific Antigen 6 Months N40.0 - Benign prostatic hyperplasia without lower urinary tract symptoms, R97.20 - Elevated prostate specific antigen [PSA] Medications: Refilled finasteride 5 mg PO DAILY 90 days 90 tabs 3RF N13.8 - Other obstructive and reflux uropathy, N40.1 - Benign prostatic hyperplasia with lower urinary tract symptoms, R33.9 - Retention of urine, unspecified Patient Instructions: The patient had an opportunity to ask questions regarding the treatment plan. All questions were answered. Physical exam, labs, and imaging were discussed and reviewed in detail. As well as risks, benefits, and discussion of treatment choices. No major barriers to understanding were identified. The patient expressed understanding and agreement with the above treatment plan. The patient was made aware they should contact our office by phone for worsening of their current condition, the appearance of new symptoms, or with any questions or concerns. Compliance is encouraged with any medications and follow up testing that is ordered. It is a privilege to be allowed the opportunity to participate in? your urological care.? Again, if you have any questions or concerns If you have any questions or concerns please do not hesitate to contact me. The office is [phone]. This note is constructed using voice recognition software. While every effort has been made to ensure accuracy yard loader operator errors may have been included. Yours sincerely, ARTHUR Pritchard Coding Level of Care Code Est Pt Level 3 (36997) Complex EM visit Add On G2211 Diagnoses Elevated PSA R97.20 Enlarged prostate N40.0 Renal cyst N28.1 Incomplete bladder emptying R33.9 Testicular carcinoma C62.90
== END 2024-08-20 11:22 | disposition home or self-care (01) ==
LOC: HO.HUSH 10:39
PROVIDERS: PCP Internal Medicine; Visit Provider Nurse Practitioner Family
DX: R97.20 Elevated prostate specific antigen [PSA] (principal); N40.0 Benign prostatic hyperplasia without lower urinary tract symptoms; N28.1 Cyst of kidney, acquired; R33.9 Retention of urine, unspecified; C62.90 Malignant neoplasm of unspecified testis, unspecified whether descended or undescended; Z13.9 Encounter for screening, unspecified
CPT/HCPCS: 99213; G2211

== ENCOUNTER → 2024-08-20 10:38 | Outpatient (BNVA) | payer MEDICARE, MEDICAID, SELFPAY | PROVIDERS: PCP Internal Medicine; Visit Provider Nurse Practitioner Family | DX: N40.1 Benign prostatic hyperplasia with lower urinary tract symptoms (principal); R97.20 Elevated prostate specific antigen [PSA]; N28.1 Cyst of kidney, acquired; R33.8 Other retention of urine; N13.8 Other obstructive and reflux uropathy; C62.90 Malignant neoplasm of unspecified testis, unspecified whether descended or undescended | CPT/HCPCS: 81003; 99212 ==

== ENCOUNTER 2024-10-08 12:50 | Outpatient (AMB) | payer OTHER, MEDICARE, MEDICAID, SELFPAY ==
--- NOTE | 2024-10-08 13:00 | MHC.PC.OV ---
Vital Signs 10/08/24 13:03 Height 6 ft 2 in Weight 223 lb 6 oz BMI 28.7 BP 110/70 Respiration 18 Pulse 86 Pulse Source Auscultation Temp 99.1 F Temp Source Oral Pulse Oximetry (%) 96 Oxygen Delivery Method Room Air Intake Visit Reasons: Request Physical NUTRIENT MANAGEMENT SPECIALIST Nitro Man Required: No Accompanied by: Self / Same As Patient Allergies No Known Allergies Allergy (Verified 10/08/24 13:29) Medication List - Last Reconciled 10/08/24 by SHARON Hanks apixaban (Eliquis) 5 mg PO BID cyclobenzaprine 10 mg PO BID PRN finasteride 5 mg PO DAILY 90 days mirtazapine 30 mg PO BEDTIME olanzapine 15 mg PO BEDTIME sertraline 50 mg PO DAILY tamsulosin 0.8 mg (2 x 0.4 mg) PO DAILY 90 days Tobacco use date assessed: 10/08/24 Fall risk assessment: 1 Fall in past year Last assessed Fall Risk: 10/08/24 Dental Screening Dental Screen Date: 10/08/24 Did you have a dental visit in the last 12 months?: Yes Did you have a dental problem in the last 6 months where you did not have access to dental care?: No Was dental information given to patient?: Patient has dentist HPI Request Physical NUTRIENT MANAGEMENT SPECIALIST HPI Details Previous PCP: Dr. Tejeda Harmony, reports that he retired Last visit: Jul, 2024 Last PE: same Specialist: urology (Viktoriya Soria, Oncology (Dr. Polanco,) OBGYN:n/a Past medical history: Medications: Family HX:Lungs ca. Father and mother had this cancer, they both smoked. Both of them from lung cancer. Problem: The patient is a 73-year-old male presenting for management of multiple chronic conditions and follow-up care. The patient has a history of throat and nasal cancer diagnosed five years ago, for which he underwent chemotherapy and radiation therapy in [place]. He reports being in remission and is currently not undergoing any treatment. He is requesting an ENT referral. Reports that he had a PET scan in September of 2022. Reports that he is due to have another this. He also has a history of pulmonary embolism, which has resolved, and he is currently on anticoagulation therapy with Eliquis. The embolism was treated at [facility]. The patient underwent lumbar spine surgery approximately 40 years ago at the L4-L5 level, which initially resolved his symptoms. However, he now experiences intermittent lower back pain, which he describes as cramps, exacerbated by activity and relieved by rest. He has been diagnosed with anxiety disorder,depression, PTSD, and schizophrenia, for which he is on sertraline and olanzapine. He has not seen a psychiatrist recently and is interested in a referral. The patient has a history of cellulitis, which occurs intermittently, particularly right lower leg. He also has a history of testicular cancer, which was treated successfully, with the removal of one of his testicles. Family history is significant for lung cancer in both parents, who were smokers and succumbed to the disease. Reports that he had a colonoscopy about 5-6 years in [place]. Reports that polyps were found and he was told to repeat this in 5 years. No symptoms at this time. [facility], [facility] Medical History (Updated 10/08/24 @ 23:05 by SHARON Hanks) Depression PTSD (post-traumatic stress disorder) Anxiety Schizophrenia Venous thromboembolism Throat cancer Cancer of neck Testicular cancer Surgical History H/O shoulder replacement (~11/24/20) Family History Father Lung cancer Mother Lung cancer Social History Household Members: Other Housing: Other Housing Other:: fdc Patient Tobacco Use Status: Never used Tobacco Substance Use Type: Marijuana service: No Current occupational status: retired Questionnaire PHQ-9 Over the last 2 weeks, how often have you been bothered by any of the following problems? 1. Little interest or pleasure in doing things: not at all 2. Feeling down, depressed, or hopeless: not at all 3. Trouble falling or staying asleep, or sleeping too much: not at all 4. Feeling tired or having little energy: not at all 5. Poor appetite or overeating: not at all 6. Feeling bad about yourself - or that you are a failure or have let yourself or your family down: not at all 7. Trouble concentrating on things, such as reading the newspaper or watching television: not at all 8. Moving or speaking so slowly that other people could have noticed. Or the opposite - being so fidgety or restless that you have been moving around a lot more than usual: not at all 9. Thoughts that you would be better off or of hurting yourself in some way: not at all Total score: 0 Depression Screening Interpretation: Negative Depression Screening Done: Yes 66357 - PHQ-9 Billing: Yes Source: Developed by Drs. Pedro Simms, Purnima Iverson, Andry Colindres and colleagues, with an educational jyoti from [employer]. Thrive Questionnaire Date Thrive assessed: 10/08/24 I am a: Patient What is your living situation today?: I have a steady place to live Within the past 12 months, did the food you bought not last and you didn't have the money to get more?: Often true Within the past 12 months, did you worry whether your food would run out before you got money to buy more?: Never true Do you have trouble paying for medicines?: No Do you have trouble getting transportation to medical appointments?: No Do you have trouble paying your heating and electricity bill?: No Do you have trouble taking care of your child, family member or friend?: No Do you have trouble with day-to-day activities such as bathing, preparing meals, shopping, managing finances, etc.?: No Are you currently unemployed and looking for a job?: No Are you interested in more education?: No Please select the resources that you would like help with: None Currently or been in a relationship where the following occur: No concerns reported THRIVE Score: 1 AUDIT C Alcohol Use Questionnaire (AUDIT-C) 1. How often do you have a drink containing alcohol?: Never Total Score: 0 RAND-7 AMB Questionnaire RAND-7 Date RAND - 7 assessed: 10/08/24 Feeling nervous, anxious, or on edge: 0 = Not at all Not being able to stop or control worryin = Not at all Worrying too much about different things: 0 = Not at all Trouble relaxin = Not at all Being so restless that it is hard to sit still: 0 = Not at all Becoming easily annoyed or irritable: 0 = Not at all Feeling afraid as if something awful might happen: 0 = Not at all Total RAND-7 score (0-4 normal; 5-9 mild; 10-14 moderate; 15-21 severe): 0 Source: Developed by Drs. Pedro Simms, Purnima Iverson, Andry Colindres and colleagues, with an educational jyoti from [employer]. RAND-7 Assessment Billing RAND-7 Assessment Tool: RAND-7 Assessment 18231 Review of Systems Const Denies headache(s) Eyes Denies loss of vision ENT Denies vertigo, Denies dizziness, Denies headache(s), Reports hoarseness and Denies sore throat Card Denies chest pain, Reports pedal edema, Denies leg edema and Denies lightheadedness Resp Denies cough, Denies hemoptysis and Denies wheezing GI Denies abdominal pain, Denies melena, Denies constipation, Denies diarrhea and Denies vomiting Denies dysuria, Denies urinary frequency and Denies urinary urgency Musc Reports back pain (Chronic lower back pain), Denies arthralgias, Denies joint swelling, Denies numbness and Denies tingling Skin/Breast Reports other (Recurrent cellulitis to bilateral lower extremities) Neuro Denies Abnormal speech present, Denies behavioral changes, Denies vertigo, Denies dizziness, Denies headache(s), Denies loss of vision, Denies memory loss, Denies numbness and Denies tingling Psych Reports anxiety, Denies behavioral changes, Reports depression, Denies memory loss, Denies panic attacks, Denies homicidal ideation and Denies suicidal ideation Izaiah/Lymph Denies easy bleeding and Denies easy bruising Aller/Immun Denies wheezing Physical exam (Primary Care) Vital Signs: Last Vital Signs BP 110/70 10/08/24 13:03 Oxygen Delivery Method Room Air 10/08/24 13:03 BMI result Body Mass Index 28.7 Tobacco/Smoking Status: Tobacco use Status Tobacco use date assessed 10/08/24 10/08/24 13:08 Patient Tobacco Use Status Never used Tobacco 10/08/24 13:08 PHQ-9: PHQ-9 Score PHQ-9: Total score 0 10/08/24 13:55 Depression Screening Interpretation: Negative Thrive Assessment: Date of Thrive Assessment Date Thrive assessed 10/08/24 10/08/24 13:08 Currently or been in a relationship where the following occur: No concerns reported Const General: healthy appearing, no acute distress, alert and awake Nutritional Appearance: well nourished Orientation/consciousness: oriented to person, oriented to place and oriented to time HENMT Ears: TM's normal bilaterally General nose exam: Normal nasal mucous membranes and turbinates present Eyes Conjunctivae: conjunctivae normal Sclerae: sclerae normal Pupils: Equal, round and reactive pupils present Neck Neck: Yes no lymphadenopathy and Yes no JVD Thyroid: Thyroid normal Carotids: no bruits Resp Effort & Inspection: normal respiratory effort and not tachypneic Auscultation: no crackles, no rales, no rhonchi and no wheezes Cardio Rate: regular rate Rhythm: regular rhythm Heart sounds: no murmurs and normal S1 and S2 Peripheral pulses: Peripheral pulses 2+ throughout GI Palpation (GI): Soft to palpation and nontender Auscultation: normal bowel sounds General: Yes no CVA tenderness Back/Spine/Pelvis Back: no CVA tenderness Thoracic/Lumbar Spine: No lumbar spinal tenderness Skin General skin exam: dry skin and erythema (mild-pink appearing) Neuro General: oriented to person, oriented to place and oriented to time Cranial nerves: Yes Equal, round and reactive pupils present Speech: No Abnormal speech present Gait exam (Neuro): Normal gait present Motor exam (neuro): 5/5 motor strength present throughout and no tremor noted Extrem Right upper extremity: full ROM Left upper extremity: full ROM Right lower extremity: full ROM, edema Details: 1+, lower leg and ankle Left lower extremity: full ROM, edema Details: pitting and 1+, lower leg and ankle Psych Mental Status: mental status grossly normal Speech and movement: Normal speech and movement present Affect: normal affect Attitude: cooperative Thought process: Normal thought process present Coding Level of Care Code New Pt Level 4 (13046) Diagnoses Chronic deep vein thrombosis (DVT) of lower extremity, unspecified laterality, unspecified vein I82.509 DVT location: lower extremity Affected thrombotic vein of extremity: unspecified vein of extremity Chronicity: chronic Laterality: unspecified laterality Enlarged prostate N40.0 Carcinoma of testis, unspecified laterality C62.90 Laterality: unspecified laterality Schizophrenia, unspecified type F20.9 Schizophrenia type: unspecified Anxiety F41.9 PTSD (post-traumatic stress disorder) F43.10 Depression, unspecified depression type F32.A Depression Type: unspecified Throat cancer C14.0 Chronic low back pain without sciatica, unspecified back pain laterality M54.50; G89.29 Chronicity: chronic Back pain laterality: unspecified Sciatica presence: without sciatica Additional Codes RAND-7 Assessment Billing - RAND-7 Assessment Tool: RAND-7 Assessment 27929 ([id number]) PHQ-9 - 04147 - PHQ-9 Billing: Yes ([id number]) Time Spent (min) 42 Assessment & Plan Assessment & Plan (1) DVT (deep venous thrombosis): Code(s): I82.409 - Acute embolism and thrombosis of unspecified deep veins of unspecified lower extremity Category: Medical Qualifiers: DVT location: lower extremity Affected thrombotic vein of extremity: unspecified vein of extremity Chronicity: chronic Laterality: unspecified laterality Qualified Code(s): I82.509 - Chronic embolism and thrombosis of unspecified deep veins of unspecified lower extremity Plan: Patient has a history of DVT in lower extremities, more often in right. Also has a history of PE that was extracted by IR in [facility]. He is currently on Eliquis 5 mg b.i.d. follow up with hematology/Oncology as scheduled. 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 He has a history of incomplete emptying of his bladder. He denies any urinary symptoms today. Continue finasteride 5 mg daily, tamsulosin 0.8 mg daily. Follow up with Urology as scheduled (3) Testicular carcinoma: Code(s): C62.90 - Malignant neoplasm of unspecified testis, unspecified whether descended or undescended Category: Medical Qualifiers: Laterality: unspecified laterality Qualified Code(s): C62.90 - Malignant neoplasm of unspecified testis, unspecified whether descended or undescended Plan: History of testicular cancer that was successfully treated with removal of one of his testicles. (4) Schizophrenia: Code(s): F20.9 - Schizophrenia, unspecified Category: Medical Qualifiers: Schizophrenia type: unspecified Qualified Code(s): F20.9 - Schizophrenia, unspecified Plan: Continue olanzapine 15 mg at bedtime, mirtazapine 30 mg at bedtime. Reports that he used to see a psychiatrist in [place] and is in need of for referral. (5) Anxiety: Code(s): F41.9 - Anxiety disorder, unspecified Category: Medical Plan: Encouraged CBT. Continue sertraline 50 mg daily We will refer the patient to Psychiatry (6) PTSD (post-traumatic stress disorder): Code(s): F43.10 - Post-traumatic stress disorder, unspecified Category: Medical Plan: Same as above. (7) Depression: Code(s): F32.A - Depression, unspecified Category: Medical Qualifiers: Depression Type: unspecified Qualified Code(s): F32.A - Depression, unspecified Plan: Continue sertraline 50 mg daily, mirtazapine 30 mg at bedtime. He denies SI/HI, he is in need of a new psychiatrist. We will refer the patient to Psychiatry (8) Throat cancer: Code(s): C14.0 - Malignant neoplasm of pharynx, unspecified Category: Medical Plan: History of throat cancer. Reports that he had a PET scan on September 2022 and is due for follow up. Patient he is requesting an ENT referral. He is currently seen Dr. Polanco oncologist and he is going to see if he could order the PET scan. (9) Low back pain: Code(s): M54.50 - Low back pain, unspecified Category: Medical Qualifiers: Chronicity: chronic Back pain laterality: unspecified Sciatica presence: without sciatica Qualified Code(s): M54.50 - Low back pain, unspecified; G89.29 - Other chronic pain Plan: Patient has chronic lower back pain. Status post lumbar spine surgery from L4-L5 around 40 years ago. The patient was taking ibuprofen 800 mg b.i.d. p.r.n. Discussed with the patient about the bleeding risk of using apixaban and ibuprofen at the same time. We will start the patient on gabapentin 100 mg t.i.d. p.r.n. to substitute for pain control. Orders: Orders Lipid Panel Today C62.90 - Malignant neoplasm of unspecified testis, unspecified whether descended or undescended, I82.509 - Chronic embolism and thrombosis of unspecified deep veins of unspecified lower extremity, I82.90 - Acute embolism and thrombosis of unspecified vein, R33.9 - Retention of urine, unspecified, R97.20 - Elevated prostate specific antigen [PSA] TSH reflex Free T4 Today C62.90 - Malignant neoplasm of unspecified testis, unspecified whether descended or undescended, I82.509 - Chronic embolism and thrombosis of unspecified deep veins of unspecified lower extremity, I82.90 - Acute embolism and thrombosis of unspecified vein, R33.9 - Retention of urine, unspecified, R97.20 - Elevated prostate specific antigen [PSA] Vitamin D 25-OH Total Today C62.90 - Malignant neoplasm of unspecified testis, unspecified whether descended or undescended, I82.509 - Chronic embolism and thrombosis of unspecified deep veins of unspecified lower extremity, I82.90 - Acute embolism and thrombosis of unspecified vein, R33.9 - Retention of urine, unspecified, R97.20 - Elevated prostate specific antigen [PSA] Complete Blood Count Auto Diff Today C62.90 - Malignant neoplasm of unspecified testis, unspecified whether descended or undescended, I82.509 - Chronic embolism and thrombosis of unspecified deep veins of unspecified lower extremity, I82.90 - Acute embolism and thrombosis of unspecified vein, R33.9 - Retention of urine, unspecified, R97.20 - Elevated prostate specific antigen [PSA] Comprehensive [place]. Panel Fast Today C62.90 - Malignant neoplasm of unspecified testis, unspecified whether descended or undescended, I82.509 - Chronic embolism and thrombosis of unspecified deep veins of unspecified lower extremity, I82.90 - Acute embolism and thrombosis of unspecified vein, R33.9 - Retention of urine, unspecified, R97.20 - Elevated prostate specific antigen [PSA] UA CC w/rflx Micro + Cult Today C62.90 - Malignant neoplasm of unspecified testis, unspecified whether descended or undescended, I82.509 - Chronic embolism and thrombosis of unspecified deep veins of unspecified lower extremity, I82.90 - Acute embolism and thrombosis of unspecified vein, R33.9 - Retention of urine, unspecified, R97.20 - Elevated prostate specific antigen [PSA] Referrals Psychiatry Referral F20.9 - Schizophrenia, unspecified, F32.A - Depression, unspecified, F41.9 - Anxiety disorder, unspecified, F43.10 - Post-traumatic stress disorder, unspecified Ear/Nose/Throat Referral C14.0 - Malignant neoplasm of pharynx, unspecified, C76.0 - Malignant neoplasm of head, face and neck Gastroenterology Referral Z12.11 - Encounter for screening for malignant neoplasm of colon Medications: New gabapentin 100 mg PO TID PRN 60 caps 2RF pain
[2024-10-08 13:03] VITALS: BP 110/70; PULSE 86; RESP 18; TEMP 37.3; O2SAT 96; BMI 28.7
== END 2024-10-08 14:09 | disposition home or self-care (01) ==
LOC: HO.HMCH 12:51
DX: I82.501 Chronic embolism and thrombosis of unspecified deep veins of right lower extremity (principal); C62.91 Malignant neoplasm of right testis, unspecified whether descended or undescended; F20.9 Schizophrenia, unspecified; C14.0 Malignant neoplasm of pharynx, unspecified; N40.0 Benign prostatic hyperplasia without lower urinary tract symptoms; F41.9 Anxiety disorder, unspecified; F43.10 Post-traumatic stress disorder, unspecified; F32.A Depression, unspecified; M54.50 Low back pain, unspecified; G89.29 Other chronic pain

== ENCOUNTER → 2024-10-08 12:50 | Outpatient (BNVA) | payer MEDICARE, MEDICAID, SELFPAY | PROVIDERS: PCP Internal Medicine | DX: N40.0 Benign prostatic hyperplasia without lower urinary tract symptoms (principal); C62.90 Malignant neoplasm of unspecified testis, unspecified whether descended or undescended; F20.9 Schizophrenia, unspecified; F41.9 Anxiety disorder, unspecified; F43.10 Post-traumatic stress disorder, unspecified; F32.A Depression, unspecified; C14.0 Malignant neoplasm of pharynx, unspecified; M54.50 Low back pain, unspecified; G89.29 Other chronic pain | CPT/HCPCS: 96127 ==

== ENCOUNTER 2024-11-18 09:00 | Outpatient (REF) | payer MEDICARE, MEDICAID, SELFPAY ==
--- OUTSIDE RECORDS SUMMARY | 2024-11-18 09:23 | XMS_ITS | Encounter Summary ---
Author Organization [facility] Address [address] [place] [address] Phone Care Team Providers Care Manager Float Name Role Phone Alverto Tejeda MD Primary Care Provider [phone]- [phone] Encounter Details Date Type Department Care Team (Late st Contact Info) Description 02/24/2023 Procedure Pass [facility] [address] [place] [address] Social History Tobacco Use Types Packs/Day Years Used Date Smoking Tobacco: Never Alcohol Use Standard Drinks/Week Comments Not Currently 0 (1 standard drink = 0.6 oz pur e alcohol) Education Answer Date Recorded Are you interested in more education? Not on zulay e 02/24/2023 Are you concerned about learning? Not on file 02/24/2023 No 02/24/2023 No 02/24/2023 Digital Access Answer Date Recorded No 02/24/2023 No 02/24/2023 Reliable internet access at home? Not on file 02/24/2023 Device with a working camera? Not on file Intimate Partner Violence Answer Date R ecorded Are you denied basic needs s uch as food, clothing, or medical care? No 02/24/2023 In the past 12 months have y ou been in a relationship with a person who hurts, threatens, or tries to control you? No 02/24/2023 Are you denied basic needs s uch as food, clothing, or medical care? No 02/24/2023 In the past 12 months have y ou been in a relationship with a person who hurts, threatens, or tries to control you? No 02/24/2023 Sex and Gender Information Value Date Recorded Sex Assigned at Not on file Legal Sex Male 5:08 PM EST Gender Identity Not on file Sexual Orientation Not on file documented as of this encounter Functional Status * Calculated C-SSRS Risk Score (Lifetime/Recent) Answer Date of Assessment Author High Risk 02/24/2023 11:38 PM Roger Garcia RN * [place] Suicide Severity Rating Scale (Screener/Recent Self-Report) Question Answer Date of Assessment Author 1. Wish to be (Past 1 Month) Yes 023 11:38 PM Roger Garcia RN 2. Non-Specific Active Suici magalis Thoughts (Past 1 Month) Yes 02/24/2023 11:38 PM Mag adilson Garcia RN 3. Active Suicidal Ideation with any Methods (Not Plan) Without Intent to Act (Past 1 Month) Yes 02/24/2023 11:38 PM Roger Garcia RN 4. Active Suicidal Ideation with Some Intent to Act, Without Specific Plan (Past 1 Month) Yes 02/24/2023 11:38 PM Roger Garcia RN 5. Active Suicidal Ideation with Specific Plan and Intent (Past 1 Month) No 02/24/2023 11:38 PM Roger Garcia RN 6. Suicidal Behavior (Lifetime) Yes 3 11:38 PM Roger Garcia RN 6. Suicidal Behavior (3 Months) No 3 11:38 PM Roger Garcia RN documented as of this encounter Plan of Treatment Not on file documented as of this encounter Visit Diagnoses Not on filedocumented in this encounter Additional Health Concerns Infection Onset Date Last Indicated Resolved Time CoV-Risk 02/24/2023 02/24/2023 02/24/2023 6:15 PM EST CoV-Exposed Comment:Positive COVID-19 02/24/2023 02/24/2023 02/24/2023 6:1 5 PM EST COVID-19 02/24/2023 02/24/2023 03/17/2023 1:21 AM EST documented as of this encounter Care Teams Manager Float Relationship Specialty Start Date End Date Alverto Tejeda MD [address] [place] [id number] PCP - General Internal Medicine 02/24/23 documented as of this encounter Additional Source Comments The information contained in this document represents components of the legal health record. It is not the complete legal health record.[facility]
--- OUTSIDE RECORDS SUMMARY | 2024-11-18 09:23 | XMS_ITS | Encounter Summary ---
Author Organization [facility] Address [address] [place] [address] Phone Care Team Providers Care C Developer Name Role Phone Alverto Tejeda MD Primary Care Provider [phone]- [phone] Encounter Details Date Type Department Care Team (Late st Contact Info) Description 02/26/2023 Procedure Pass [facility] [address] [place] [address] Social History Tobacco Use Types Packs/Day Years [...] on file documented as of this encounter Plan of Treatment Not on file documented as of this encounter Visit Diagnoses Not on filedocumented in this encounter Additional Health Concerns Infection Onset Date Last Indicated Resolved Time COVID-19 02/24/2023 02/24/2023 03/17/2023 1:21 AM EST documented as of this encounter Care Teams C Developer Relationship Specialty Start Date End Date Alverto Tejeda MD [address] [place] [address] PCP - General Internal Medicine 02/24/23 documented as of this encounter Additional Source Comments The information contained in this document represents components of the legal health record. It is not the complete legal health record.[facility]
--- OUTSIDE RECORDS SUMMARY | 2024-11-18 09:23 | XMS_ITS | Encounter Summary ---
Author Organization [facility] Address [address] [place] [address] Phone Care Team Providers Care Public Interviewer Name Role Phone Alverto Tejeda MD Primary Care Provider [phone]- [phone] Encounter Details Date Type Department Care Team (Late st Contact Info) Description 02/28/2023 Procedure Pass [facility] [address] [place] [address] Social History Tobacco Use Types Packs/Day Years [...] documented as of this encounter Care Teams Public Interviewer Relationship Specialty Start Date End Date Alverto Tejeda MD [address] [place] [address] PCP - General Internal Medicine 02/24/23 documented as of this encounter Additional Source Comments The information contained in this document represents components of the legal health record. It is not the complete legal health record.[facility]
--- OUTSIDE RECORDS SUMMARY | 2024-11-18 09:23 | XMS_ITS | Clinical Summary ---
Author Organization [facility] Address [address] [place] [address] Phone Care Team Providers Care Stamp Presser Name Role Phone Alverto Tejeda MD Primary Care Provider +1- [phone] Allergies No known active allergies Medications OLANZapine (ZYPREXA) 15 MG tablet Take 15 mg by mouth nightly at bedtime. 02/20/20 Active tamsulosin (FLOMAX) 0.4 mg Cap Take 0.4 mg by mouth nightly at bedtime. 12/13/19 Active mirtazapine (REMERON) 30 MG tablet Take 30 mg by mouth nightly at bedtime. 02/20/20 Active cyclobenzaprine (FLEXERIL) 10 MG tablet Take 10 mg by mouth 2 (two) times a day as needed (spasm). 02/09/20 Active apixaban (ELIQUIS) 5 mg tabletIndications:d eep venous thrombosis,pulmonar y thromboembolism Take 1 tablet (5 mg total) by mouth 2 (two) times a day. 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 02/24/2023 Resolved Problems Problem Noted Date Diagnosed Date Resolved Date Acute hypoxic respiratory failure 02/25/2023 02/28/2023 Immunizations No known immunizations Social History Tobacco Use Types Packs/Day Years [...] on file Sexual Orientation Not on file Last Filed Vital Signs Vital Sign Reading Time Taken Comments Blood Pressure 123/76 02/28/2023 8:00 AM EST Pulse 102 02/28/2023 12:02 PM EST Temperature 36 C (96.8 F) 02/28/2023 8:00 AM EST Respiratory Rate 22 02/28/2023 12:00 PM EST Oxygen Saturation 92% 02/28/2023 12:02 PM EST Inhaled Oxygen Concentration 60% 02/26/2023 6 :30 PM EST Weight 125.6 kg (277 lb) 02/28/2023 4:55 AM EST Height 188 cm (6' 2.02 ) 02/27/2023 5:15 AM EST Body Mass Index 35.55 02/27/2023 5:15 AM EST Plan of Treatment Health Maintenance Due Date Last Done Comments Adult Td,Tdap Booster 1952 LIPID PANEL 1952 DEPRESSION SCREENING 1964 HEPATITIS C SCREENING 1970 SMOKING STATUS SCREENING (Once After 26 Yrs) 1978 COLOGUARD 1997 COLONOSCOPY 1997 COLORECTAL CANCER SCREENING 1997 FIT TEST 1997 FOBT 1997 SIGMOIDOSCOPY 1997 VIRTUAL COLONOSCOPY 1997 PNEUMOCOCCAL VACCINES (50+ years) (1 of 1 - PCV) 2002 ZOSTER VACCINES (1 of 2) 2002 RSV VACCINE (1 - Risk 60-74 years 1-dose series) 2012 COVID-19 VACCINE (1 - 2023- season) 2023 CREATININE LEVEL 02/28/2024 02/27/2023, 06/2022, 02/25/2023, Additional history exists HEPATITIS A VACCINES Aged Out No long er eligible based on patient's age to complete this topic HIB VACCINES Aged Out No longer eligi ble based on patient's age to complete this topic MENINGOCOCCAL VACCINES (ACWY) Aged Out No longer eligible based on patient's age to complete this topic MENINGOCOCCAL VACCINES (B) Aged Out N o longer eligible based on patient's age to complete this topic Medical Devices Not on file Procedures Procedure Name Priority Date/Time Associated Diagnosis Comments BASIC METABOLIC PANEL Routine 02/27/2023 3:09 AM EST from Last 3 Months or Most Recently Relevant to Health Maintenance Results * (ABNORMAL) Basic metabolic panel (02/27/2023 3:09 AM EST) SODIUM 142 133 - 146 mmol/L [facility] CHLORIDE 107 96 - 108 mmol/L [facility] POTASSIUM 4.2 3.3 - 5.1 mmol/L [facility] CO2 22 21 - 35 mmol/L [facility] BUN 23(H) 6 - 19 mg/dL [facility] CREATININE 0.60 0.5 - 1.5 mg/dL [facility] GLUCOSE 145(H) 70 - 99 mg/dL [facility] CALCIUM 8.5 8.4 - 10.3 mg/dL [facility] EGFR 104 >59 mL/min/1.7 3m2 [facility] Comment:Estimated glomerular filtration rate calculated using the CKD-EPI refit equation. ANION GAP 17 10 - 20 mmol/L [facility] Blood 02/27/2023 3:09 AM EST 02/27/2023 3:40 AM EST us Hunter Olivarez MD LAB BLOOD ORDERABLES F inal Result [address] [address] from Last 3 Months or Most Recently Relevant to Health Maintenance Insurance [facility] MEDICARE REPLACEMENT [address] [place], [place] [id number] MEDICARE [place] [facility] [place] [facility] [place] [facility] MEDIC[facility] REPLACEMENT Advance Directives For more information, please contact: [phone] (9AM - 5PM [facility], Sunday-Sunday) Documents on File Type Date Recorded Patient Broke Beater Expl anation Healthcare Proxy 02/24/2023 Healthcare Proxy * Full Code (Latest Code Status on File) Date Activated Date Inactivated Comments 02/24/2023 11:41 PM Question Answer Comments Code Status Confirmed With: Patient Healthcare Agents on File Name Relationship Healthcare Agent Relationshi p Communication Kayleen Rojas Daughter .Primary Health Care Agent (Proxy form on file) Care Teams Stamp Presser Relationship Specialty Start Date End Date Alverto Tejeda MD [address] [place] [id number] PCP - General Internal Medicine 02/24/23 Additional Source Comments The information contained in this document represents components of the legal health record. It is not the complete legal health record.[facility]
--- OUTSIDE RECORDS SUMMARY | 2024-11-18 09:24 | XMS_ITS | Encounter Summary ---
Author Organization [facility] Address [address] [place] [address] Phone Care Team Providers Care Public Events Facilities Rental Manager Name Role Phone Alverto Tejeda MD Primary Care Provider +1- [phone] Encounter Details Date Type Department Care Team (Late st Contact Info) Description 02/24/2023 Procedure Pass [facility], Ct Scan - [address] [address] Social History Tobacco Use Types Packs/Day Years Used Date Smoking Tobacco: Never Assessed Education Answer Date Recorded Are you interested [...] 02/24/2023 11:38 PM Roger Garcia RN * [place] Suicide Severity Rating Scale (Screener/Recent Self-Report) Question [...] Behavior (3 Months) No 3 11:38 PM Roegr Garcia RN documented as of this encounter [...] as of this encounter Care Teams Public Events Facilities Rental Manager Relationship Specialty Start Date End Date Alverto Tejeda MD [address] [place] [id number] PCP - General Internal Medicine 02/24/23 documented as of this encounter Additional Source Comments The information contained in this document represents components of the legal health record. It is not the complete legal health record.[facility]
--- OUTSIDE RECORDS SUMMARY | 2024-11-18 09:24 | XMS_ITS | Encounter Summary ---
Author Organization [facility] Address [address] [place] [address] Phone Care Team Providers Care Principal Java Developer Name Role Phone Alverto Tejeda MD Primary Care Provider +1- [phone] Encounter Details Date Type Department Care Team (Late st Contact Info) Description 01/31/2024 Transcribe Orders [facility] Specimen Processing [address] [place] [address] Alverto Tejeda MD [address] [place] [address] Social History Tobacco Use Types Packs/Day Years [...] Diagnoses Not on filedocumented in this encounter Care Teams Principal Java Developer Relationship Specialty Start Date End Date Alverto Tejeda MD [address] [place] [address] PCP - General Internal Medicine 02/24/23 documented as of this encounter Additional Source Comments The information contained in this document represents components of the legal health record. It is not the complete legal health record.[facility]
== END 2024-11-18 09:01 | disposition home or self-care (01) ==
LOC: HO.LAB 09:00
DX: Z13.89 Encounter for screening for other disorder (principal)

== ENCOUNTER 2024-12-03 10:04 | Outpatient (AMB) | payer MEDICARE, MEDICAID, SELFPAY ==
--- NOTE | 2024-12-03 10:28 | MHC.PC.OV ---
Vital Signs 12/03/24 10:29 Height 6 ft 2 in Weight 223 lb 8 oz BMI 28.7 BP 108/60 Blood Pressure Location Lt brachial Position Sitting Respiration 18 Pulse 84 Pulse Source Pulse Oximeter Temp 97.3 F Temp Source Temporal Artery Scan Pulse Oximetry (%) 94 Oxygen Delivery Method Room Air Intake Visit Reasons: DVT/Throat cancer/lab review Glass Blowing Instructor Required: No Accompanied by: Self / Same As Patient Allergies No Known Allergies Allergy (Verified 12/03/24 11:07) Medication List - Last Reconciled 12/03/24 by SHARON Hanks apixaban (Eliquis) 5 mg PO BID 90 days cyclobenzaprine 10 mg PO BID PRN finasteride 5 mg PO DAILY 90 days gabapentin 100 mg PO TID PRN mirtazapine 30 mg PO BEDTIME olanzapine 15 mg PO BEDTIME sertraline 50 mg PO DAILY tamsulosin 0.8 mg (2 x 0.4 mg) PO DAILY 90 days Tobacco use date assessed: 12/03/24 Fall risk assessment: No Falls in past year Last assessed Fall Risk: 12/03/24 Dental Screening Dental Screen Date: 12/03/24 Did you have a dental visit in the last 12 months?: No Did you have a dental problem in the last 6 months where you did not have access to dental care?: No Was dental information given to patient?: No HPI DVT/Throat cancer/lab review HPI Details The patient is a 73-year-old male with past medical history of DVT, PE, enlarged prostate, testicular cancer, schizophrenia, anxiety and depression, and throat cancer This is a 2nd time meeting patient, recently the patient to establish care with the practice. Labs were ordered and the patient is here for review. Referrals were also placed and the patient was able to connect with Psychiatry/therapist once so far, but only did paperwork. He has a follow up appointment pending. The patient also was able to connect with ENT. Today he denies any chest pain, shortness of breath, heart palpitation or dizziness. Denies any leg pain or discoloration. Denies abdominal pain or change in bowel habits. [facility] Medical History Depression PTSD (post-traumatic stress disorder) Anxiety Schizophrenia Venous thromboembolism Throat cancer Cancer of neck Testicular cancer Surgical History H/O shoulder replacement (~11/24/20) Family History Father Lung cancer Mother Lung cancer Social History Household Members: Other Housing: Other Housing Other:: detention Patient Tobacco Use Status: Never used Tobacco Substance Use Type: Marijuana service: No Current occupational status: retired Questionnaire PHQ-9 Over the last 2 weeks, how often have you been bothered by any of the following problems? 1. Little interest or pleasure in doing things: not at all 2. Feeling down, depressed, or hopeless: not at all 3. Trouble falling or staying asleep, or sleeping too much: not at all 4. Feeling tired or having little energy: not at all 5. Poor appetite or overeating: not at all 6. Feeling bad about yourself - or that you are a failure or have let yourself or your family down: not at all 7. Trouble concentrating on things, such as reading the newspaper or watching television: not at all 8. Moving or speaking so slowly that other people could have noticed. Or the opposite - being so fidgety or restless that you have been moving around a lot more than usual: not at all 9. Thoughts that you would be better off or of hurting yourself in some way: not at all Total score: 0 Depression Screening Interpretation: Negative Depression Screening Done: Yes 18819 - PHQ-9 Billing: Yes Source: Developed by Drs. Pedro Simms, Purnima Iverson, Andry Colindres and colleagues, with an educational jyoti from [employer]. Thrive Questionnaire Date Thrive assessed: 12/03/24 I am a: Patient What is your living situation today?: I have a steady place to live Within the past 12 months, did the food you bought not last and you didn't have the money to get more?: Often true Within the past 12 months, did you worry whether your food would run out before you got money to buy more?: Never true Do you have trouble paying for medicines?: No Do you have trouble getting transportation to medical appointments?: No Do you have trouble paying your heating and electricity bill?: No Do you have trouble taking care of your child, family member or friend?: No Do you have trouble with day-to-day activities such as bathing, preparing meals, shopping, managing finances, etc.?: No Are you currently unemployed and looking for a job?: No Are you interested in more education?: No Please select the resources that you would like help with: None Currently or been in a relationship where the following occur: No concerns reported THRIVE Score: 1 AUDIT C Alcohol Use Questionnaire (AUDIT-C) 1. How often do you have a drink containing alcohol?: Never Total Score: 0 RAND-7 AMB Questionnaire RAND-7 Date RAND - 7 assessed: 12/03/24 Feeling nervous, anxious, or on edge: 0 = Not at all Not being able to stop or control worryin = Not at all Worrying too much about different things: 0 = Not at all Trouble relaxin = Not at all Being so restless that it is hard to sit still: 0 = Not at all Becoming easily annoyed or irritable: 0 = Not at all Feeling afraid as if something awful might happen: 0 = Not at all Total RAND-7 score (0-4 normal; 5-9 mild; 10-14 moderate; 15-21 severe): 0 Source: Developed by Drs. Pedro Simms, Purnima Iverson, Andry Colindres and colleagues, with an educational jyoti from [employer]. Review of Systems Const Denies body aches, Denies chills, Denies fever(s), Denies headache(s) and Denies poor appetite Eyes Reports no additional complaints ENT Denies dysphagia, Denies dizziness, Denies headache(s) and Denies odynophagia Card Denies chest pain, Denies syncope, Denies edema, Denies irregular heart rhythm, Denies lightheadedness and Denies dyspnea Resp Denies cough and Denies dyspnea GI Denies abdominal pain, Denies constipation, Denies dysphagia, Denies diarrhea, Denies nausea, Denies odynophagia and Denies vomiting Reports no additional complaints Musc Reports no additional complaints and Denies abnormal gait Skin/Breast Reports system reviewed and no additional complaints, except as documented Neuro Denies abnormal gait, Denies dizziness, Denies syncope and Denies headache(s) Psych Reports anxiety and Reports depression Physical exam (Primary Care) Vital Signs: Last Vital Signs Temp 97.3 F 12/03/24 10:29 Pulse 84 12/03/24 10:29 Resp 18 12/03/24 10:29 BP 108/60 12/03/24 10:29 Pulse Ox 94 12/03/24 10:29 Oxygen Delivery Method Room Air 12/03/24 10:29 BMI result Body Mass Index 28.7 Tobacco/Smoking Status: Tobacco use Status Tobacco use date assessed 12/03/24 12/03/24 10:36 Patient Tobacco Use Status Never used Tobacco 12/03/24 10:36 PHQ-9: PHQ-9 Score PHQ-9: Total score 0 12/03/24 11:12 Depression Screening Interpretation: Negative Thrive Assessment: Date of Thrive Assessment Date Thrive assessed 12/03/24 12/03/24 10:36 Currently or been in a relationship where the following occur: No concerns reported Const General: cooperative, healthy appearing, comfortable and no acute distress Orientation/consciousness: patient oriented x3 HENMT Head: Yes normocephalic Ears: hearing grossly normal bilaterally General nose exam: Normal external nose present Eyes General: appearance normal, both eyes and all related structures Conjunctivae: conjunctivae normal Neck Neck: Yes full ROM and Yes no lymphadenopathy Resp Effort & Inspection: normal respiratory effort Auscultation: clear to auscultation bilaterally, no crackles, no rales, no rhonchi and no wheezes Cardio Rate: regular rate Rhythm: regular rhythm Skin General skin exam: no rashes or lesions noted Neuro General: patient oriented x3 Gait exam (Neuro): Normal gait present Extrem General: Yes normal to inspection, Yes full ROM and No edema Psych Affect: normal affect Attitude: cooperative Insight: Good insight present (Psych) Judgement: Good judgement present (Psych) Results Reviewed Results Reviewed: Laboratory Tests 11/18/24 09:42 WBC 5.0 RBC 5.14 Hgb 14.8 Hct 42.9 MCV 83.5 MCH 28.8 MCHC 34.5 RDW 13.4 Plt Count 182 MPV 9.5 Sodium 140 Potassium 4.4 Chloride 106 Carbon Dioxide 26 Anion Gap 14 BUN 14 Creatinine 0.75 Estim Creat Clear Calc 115.6 Estimated GFR > 60 Random Glucose 122 H Calcium 9.4 Total Bilirubin 0.5 AST 22 ALT 17 Alkaline Phosphatase 87 Lactate Dehydrogenase 151 Total Protein 6.8 Albumin 4.2 Alpha Fetoprotein 4.2 Coding Level of Care Code Est Pt Level 4 (69261) Diagnoses Chronic deep vein thrombosis (DVT) of lower extremity, unspecified laterality, unspecified vein I82.509 Affected thrombotic vein of extremity: unspecified vein of extremity Chronicity: chronic DVT location: lower extremity Laterality: unspecified laterality Enlarged prostate N40.0 Carcinoma of testis, unspecified laterality C62.90 Laterality: unspecified laterality Schizophrenia, unspecified type F20.9 Schizophrenia type: unspecified Anxiety F41.9 PTSD (post-traumatic stress disorder) F43.10 Depression, unspecified depression type F32.A Depression Type: unspecified Throat cancer C14.0 Chronic low back pain without sciatica, unspecified back pain laterality M54.50; G89.29 Back pain laterality: unspecified Chronicity: chronic Sciatica presence: without sciatica Additional Codes PHQ-9 - 82144 - PHQ-9 Billing: Yes ([id number]) Time Spent (min) 38 Assessment & Plan Assessment & Plan (1) DVT (deep venous thrombosis): Code(s): I82.409 - Acute embolism and thrombosis of unspecified deep veins of unspecified lower extremity Category: Medical Qualifiers: Affected thrombotic vein of extremity: unspecified vein of extremity Chronicity: chronic DVT location: lower extremity Laterality: unspecified laterality Qualified Code(s): I82.509 - Chronic embolism and thrombosis of unspecified deep veins of unspecified lower extremity Plan: Patient has a history of DVT in lower extremities, more often in right. Also has a history of PE that was extracted by IR in [place]. He is currently on Eliquis 5 mg b.i.d. follow up with hematology/Oncology as scheduled. 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 He has a history of incomplete emptying of his bladder. He denies any urinary symptoms today. Continue finasteride 5 mg daily, tamsulosin 0.8 mg daily. Follow up with Urology as scheduled (3) Testicular carcinoma: Code(s): C62.90 - Malignant neoplasm of unspecified testis, unspecified whether descended or undescended Category: Medical Qualifiers: Laterality: unspecified laterality Qualified Code(s): C62.90 - Malignant neoplasm of unspecified testis, unspecified whether descended or undescended Plan: History of testicular cancer that was successfully treated with removal of one of his testicles. (4) Schizophrenia: Code(s): F20.9 - Schizophrenia, unspecified Category: Medical Qualifiers: Schizophrenia type: unspecified Qualified Code(s): F20.9 - Schizophrenia, unspecified Plan: Continue olanzapine 15 mg at bedtime, mirtazapine 30 mg at bedtime. Reports that he used to see a psychiatrist in [place] and is in need of for referral. Psychiatry referral placed. Reports that he had one appointment so far, but only did paperwork. He has a follow up appointment coming up. (5) Anxiety: Code(s): F41.9 - Anxiety disorder, unspecified Category: Medical Plan: Encouraged CBT. Continue sertraline 50 mg daily We will refer the patient to Psychiatry (6) PTSD (post-traumatic stress disorder): Code(s): F43.10 - Post-traumatic stress disorder, unspecified Category: Medical Plan: Same as above. (7) Depression: Code(s): F32.A - Depression, unspecified Category: Medical Qualifiers: Depression Type: unspecified Qualified Code(s): F32.A - Depression, unspecified Plan: Continue sertraline 50 mg daily, mirtazapine 30 mg at bedtime. He denies SI/HI, he is in need of a new psychiatrist. We will refer the patient to Psychiatry (8) Throat cancer: Code(s): C14.0 - Malignant neoplasm of pharynx, unspecified Category: Medical Plan: History of throat cancer. Reports that he had a PET scan on September 2022 and is due for follow up. Patient he is requesting an ENT referral. He is currently seen Dr. Polanco oncologist and he is going to see if he could order the PET scan. (9) Low back pain: Code(s): M54.50 - Low back pain, unspecified Category: Medical Qualifiers: Back pain laterality: unspecified Chronicity: chronic Sciatica presence: without sciatica Qualified Code(s): M54.50 - Low back pain, unspecified; G89.29 - Other chronic pain Plan: Patient has chronic lower back pain. Status post lumbar spine surgery from L4-L5 around 40 years ago. The patient was taking ibuprofen 800 mg b.i.d. p.r.n. Discussed with the patient about the bleeding risk of using apixaban and ibuprofen at the same time. Gabapentin 100 mg t.i.d. p.r.n. to substitute for pain control was ordered.
[2024-12-03 10:29] VITALS: BP 108/60; PULSE 84; RESP 18; TEMP 36.3; O2SAT 94; BMI 28.7
--- OUTSIDE RECORDS SUMMARY | 2024-12-03 12:15 | XMS_ITS | Clinical Summary ---
Author Organization [facility] Address [address] [place] [address] Phone Care Team Providers Care Field Nurse Case Manager Name Role Phone Alverto Tejeda MD Primary Care Provider +1- [phone] Allergies No known active allergies Medications OLANZapine [...] - Risk 60-74 years 1-dose series) 2012 CREATININE LEVEL 02/28/2024 02/27/2023, 06/2022, 02/25/2023, Additional history exists INFLUENZA VACCINE (#1) 2024 COVID-19 VACCINE ( season) 2024 HEPATITIS A VACCINES Aged Out No long [...] EST) SODIUM 142 133 - 146 mmol/L [facility] CHLORIDE 107 96 - 108 mmol/L [facility] POTASSIUM 4.2 3.3 - 5.1 mmol/L [facility] CO2 22 21 - 35 mmol/L [facility] BUN 23(H) 6 - 19 mg/dL [facility] CREATININE 0.60 0.5 - 1.5 mg/dL [facility] GLUCOSE 145(H) 70 - 99 mg/dL [facility] CALCIUM 8.5 8.4 - 10.3 mg/dL [facility] EGFR 104 >59 mL/min/1.7 3m2 [facility] Comment:Estimated glomerular filtration rate calculated using the CKD-EPI refit equation. ANION GAP 17 10 - 20 mmol/L [facility] Blood 02/27/2023 3:09 AM EST 02/27/2023 3:40 AM EST us Hunter Olivarez MD LAB BLOOD ORDERABLES F inal Result [address] [address] from Last 3 Months or Most Recently Relevant to Health Maintenance Insurance [address] [place], [place] [address] MEDIC[facility] [facility] RE[facility] [facility] MEDICARE [facility] [facility] [facility] MEDICARE RE[facility] [place] [place] [facility] AARP MEDICARE REPLACEMENT Advance Directives For more information, please contact: [phone] (9AM - 5PM [facility], Sunday-Sunday) Documents on File Type Date Recorded Patient Measurement Psychologist Expl anation Healthcare Proxy 02/24/2023 Healthcare Proxy * Full Code (Latest Code Status on File) Date Activated Date Inactivated Comments 02/24/2023 11:41 PM Question Answer Comments Code Status Confirmed With: Patient Healthcare Agents on File Name Relationship [facility] Kayleen Rojas Daughter .Primary Health Care Agent (Proxy form on file) Care Teams Field Nurse Case Manager Relationship Specialty Start Date End Date Alverto Tejeda MD [address] [place] [id number] PCP - General Internal Medicine 02/24/23 Additional Source Comments The information contained in this document represents components of the legal health record. It is not the complete legal health record.[facility]
--- OUTSIDE RECORDS SUMMARY | 2024-12-03 12:15 | XMS_ITS | Encounter Summary ---
Author Organization [facility] Address [address] [place] [address] Phone Care Team Providers Care Captain'S Assistant Name Role Phone Alverto Tejeda MD Primary Care Provider +1- [phone] Encounter Details Date Type Department Care Team (Late st Contact Info) Description 02/24/2023 Procedure Pass [facility], Ct Scan - [address] [address] Social History Tobacco Use Types Packs/Day Years [...] 02/24/2023 11:38 PM Roger Garcia RN * [place] Suicide Severity Rating Scale (Screener/Recent Self-Report) Question [...] documented as of this encounter Care Teams Captain'S Assistant Relationship Specialty Start Date End Date Alverto Tejeda MD [address] [place] [address] PCP - General Internal Medicine 02/24/23 documented as of this encounter Additional Source Comments The information contained in this document represents components of the legal health record. It is not the complete legal health record.[facility]
--- OUTSIDE RECORDS SUMMARY | 2024-12-03 12:15 | XMS_ITS | Encounter Summary ---
Author Organization [facility] Address [address] [place] [address] Phone Care Team Providers Care Estate Conservator Name Role Phone Alverto Tejeda MD Primary Care Provider +1- [phone] Encounter Details Date Type Department Care Team (Late st Contact Info) Description 02/26/2023 Procedure Pass [facility]ventional Radiology [address] [place] [address] Social History Tobacco Use Types Packs/Day Years [...] documented as of this encounter Care Teams Estate Conservator Relationship Specialty Start Date End Date Alverto Tejeda MD [address] [place] [address] PCP - General Internal Medicine 02/24/23 documented as of this encounter Additional Source Comments The information contained in this document represents components of the legal health record. It is not the complete legal health record.[facility]
--- OUTSIDE RECORDS SUMMARY | 2024-12-03 12:15 | XMS_ITS | Encounter Summary ---
Author Organization [facility] Address [address] [place] [address] Phone Care Team Providers Care Town Administrator Name Role Phone Alverto Tejeda MD Primary Care Provider +1- [phone] Encounter Details Date Type Department Care Team (Late st Contact Info) Description 02/24/2023 Procedure Pass [facility] Echo Lab [address] [place] [address] Social History Tobacco Use Types Packs/Day Years [...] 02/24/2023 11:38 PM Roger Garcia RN * [place] Suicide Severity Rating Scale (Screener/Recent Self-Report) Question [...] documented as of this encounter Care Teams Town Administrator Relationship Specialty Start Date End Date Alverto Tejeda MD [address] [place] [address] PCP - General Internal Medicine 02/24/23 documented as of this encounter Additional Source Comments The information contained in this document represents components of the legal health record. It is not the complete legal health record.[facility]
--- OUTSIDE RECORDS SUMMARY | 2024-12-03 12:15 | XMS_ITS | Encounter Summary ---
Author Organization [facility] Address [address] [place] [address] Phone Care Team Providers Care Report Specialist Name Role Phone Alverto Tejeda MD Primary Care Provider +1- [phone] Encounter Details Date Type Department Care Team (Late st Contact Info) Description 01/31/2024 Transcribe Orders [facility] Specimen Processing [address] [place] [address] Alverto Tejeda MD [address] [place] [address] Social History Tobacco Use Types Packs/Day Years [...] on filedocumented in this encounter Care Teams Report Specialist Relationship Specialty Start Date End Date Alverto Tejeda MD [address] [place] [address] PCP - General Internal Medicine 02/24/23 documented as of this encounter Additional Source Comments The information contained in this document represents components of the legal health record. It is not the complete legal health record.[facility]
--- OUTSIDE RECORDS SUMMARY | 2024-12-03 12:15 | XMS_ITS | Encounter Summary ---
Author Organization [facility] Address [address] [place] [address] Phone Care Team Providers Care Deicer Kit Assembler Name Role Phone Alverto Tejeda MD Primary Care Provider +1- [phone] Encounter Details Date Type Department Care Team (Late st Contact Info) Description 02/28/2023 Procedure Pass [facility] Echo Lab 30 [place] [address] Social History Tobacco Use Types Packs/Day Years [...] documented as of this encounter Care Teams Deicer Kit Assembler Relationship Specialty Start Date End Date Alverto Tejeda MD [address] [place] [address] PCP - General Internal Medicine 02/24/23 documented as of this encounter Additional Source Comments The information contained in this document represents components of the legal health record. It is not the complete legal health record.[facility]
== END 2024-12-03 11:14 | disposition home or self-care (01) ==
LOC: HO.HMCH 10:05
DX: I82.501 Chronic embolism and thrombosis of unspecified deep veins of right lower extremity (principal); F20.9 Schizophrenia, unspecified; C14.0 Malignant neoplasm of pharynx, unspecified; C62.90 Malignant neoplasm of unspecified testis, unspecified whether descended or undescended; N40.0 Benign prostatic hyperplasia without lower urinary tract symptoms; F41.9 Anxiety disorder, unspecified; F43.10 Post-traumatic stress disorder, unspecified; F32.A Depression, unspecified; M54.50 Low back pain, unspecified; G89.29 Other chronic pain

== ENCOUNTER → 2024-12-03 10:04 | Outpatient (BNVA) | payer MEDICARE, MEDICAID, SELFPAY | PROVIDERS: PCP Internal Medicine | DX: N40.0 Benign prostatic hyperplasia without lower urinary tract symptoms (principal); F20.9 Schizophrenia, unspecified; F41.9 Anxiety disorder, unspecified; F32.A Depression, unspecified; C62.90 Malignant neoplasm of unspecified testis, unspecified whether descended or undescended; F43.10 Post-traumatic stress disorder, unspecified; C14.0 Malignant neoplasm of pharynx, unspecified; M54.50 Low back pain, unspecified; G89.29 Other chronic pain; Z86.718 Personal history of other venous thrombosis and embolism; Z86.711 Personal history of pulmonary embolism | CPT/HCPCS: 96127; 99212 ==

== ENCOUNTER 2025-02-05 09:34 | Outpatient (REF) | payer MEDICARE, MEDICAID, SELFPAY ==
[2025-02-05 10:53] LABS: Prostate Specific Antigen 2.02 ng/mL (<0.05-4.0)
--- OUTSIDE RECORDS SUMMARY | 2025-02-05 11:04 | XMS_ITS | Encounter Summary ---
Author Organization [facility] Address [address] [place] [address] Phone Care Team Providers Care Mold Yard Crane Operator Name Role Phone Alverto Tejeda MD Primary Care Provider +1- [phone] Encounter Details Date Type Department Care Team (Late st Contact Info) Description 02/24/2023 Procedure Pass [facility] Echo Lab 30 [place] [address] Social History Tobacco Use Types Packs/Day Years [...] 02/24/2023 11:38 PM Roger Garcia RN * [place] Suicide Severity Rating Scale (Screener/Recent Self-Report) Question [...] documented as of this encounter Care Teams Mold Yard Crane Operator Relationship Specialty Start Date End Date Alverto Tejeda MD [address] [place] [address] PCP - General Internal Medicine 02/24/23 documented as of this encounter Additional Source Comments The information contained in this document represents components of the legal health record. It is not the complete legal health record.[facility]
--- OUTSIDE RECORDS SUMMARY | 2025-02-05 11:04 | XMS_ITS | Encounter Summary ---
Author Organization [facility] Address [address] [place] [address] Phone Care Team Providers Care Sandwich Peddler Name Role Phone Alverto Tejdea MD Primary Care Provider +1- [phone] Encounter Details Date Type Department Care Team (Late st Contact Info) Description 02/24/2023 Procedure Pass [facility], Ct Scan - [address] [address] Social History Tobacco Use Types Packs/Day Years [...] 02/24/2023 11:38 PM Roger Garcia RN * [place] Suicide Severity Rating Scale (Screener/Recent Self-Report) Question [...] documented as of this encounter Care Teams Sandwich Peddler Relationship Specialty Start Date End Date Alverto Tejeda MD [address] [place] [address] PCP - General Internal Medicine 02/24/23 documented as of this encounter Additional Source Comments The information contained in this document represents components of the legal health record. It is not the complete legal health record.[facility]
--- OUTSIDE RECORDS SUMMARY | 2025-02-05 11:04 | XMS_ITS | Encounter Summary ---
Author Organization [facility] Address [address] [place] [address] Phone Care Team Providers Care Flight Coordinator Name Role Phone Alverto Tejeda MD Primary Care Provider +1- [phone] Encounter Details Date Type Department Care Team (Late st Contact Info) Description 02/28/2023 Procedure Pass [facility] Echo Lab 30 [place] [address] Social History Tobacco Use Types Packs/Day Years [...] documented as of this encounter Care Teams Flight Coordinator Relationship Specialty Start Date End Date Alverto Tejeda MD [address] [place] [address] PCP - General Internal Medicine 02/24/23 documented as of this encounter Additional Source Comments The information contained in this document represents components of the legal health record. It is not the complete legal health record.[facility]
--- OUTSIDE RECORDS SUMMARY | 2025-02-05 11:04 | XMS_ITS | Encounter Summary ---
Author Organization [facility] Address [address] [place] [address] Phone Care Team Providers Care Elevator Technician Name Role Phone Alverto Tejeda MD Primary Care Provider +1- [phone] Encounter Details Date Type Department Care Team (Late st Contact Info) Description 01/31/2024 Transcribe Orders [facility] Specimen Processing 30 [place] [address] Alverto Tejeda MD [address] [place] [address] Social History Tobacco Use Types Packs/Day Years [...] on filedocumented in this encounter Care Teams Elevator Technician Relationship Specialty Start Date End Date Alverto Tejeda MD [address] [place] [address] PCP - General Internal Medicine 02/24/23 documented as of this encounter Additional Source Comments The information contained in this document represents components of the legal health record. It is not the complete legal health record.[facility]
--- OUTSIDE RECORDS SUMMARY | 2025-02-05 11:04 | XMS_ITS | Clinical Summary ---
Author Organization [facility] Address [address] [place] [address] Phone Care Team Providers Care Faculty Head Name Role Phone Alverto Tejeda MD Primary Care Provider +1- [phone] Allergies No known active allergies Medications OLANZapine [...] 2002 ZOSTER VACCINES (1 of 2) 2002 CREATININE LEVEL 02/28/2024 02/27/2023, 06/2022, 02/25/2023, Additional history exists INFLUENZA VACCINE (#1) 2024 COVID-19 VACCINE (1 - 2024- season) 2024 RSV VACCINE (1 - 1-dose 75+ series) 12/15/2027 HEPATITIS A VACCINES Aged Out No long [...] Date/Time Associated Diagnosis Comments BASIC METABOLIC PANEL (BMP) Routine 02/27/2023 3:09 AM EST from Last 3 Months or Most Recently Relevant to Health Maintenance Results * (ABNORMAL) Basic metabolic panel (02/27/2023 3:09 AM EST) SODIUM 142 133 - 146 mmol/L [facility] CHLORIDE 107 96 - 108 mmol/L [facility] POTASSIUM 4.2 3.3 - 5.1 mmol/L [facility] CO2 22 21 - 35 mmol/L [facility] BUN 23(H) 6 - 19 mg/dL [facility] CREATININE 0.60 0.5 - 1.5 mg/dL [facility] GLUCOSE 145(H) 70 - 99 mg/dL [facility] CALCIUM 8.5 8.4 - 10.3 mg/dL [facility] EGFR 104 >59 mL/min/1.7 3m2 [facility] Comment:Estimated glomerular filtration rate calculated using the CKD-EPI refit equation. ANION GAP 17 10 - 20 mmol/L [facility] Blood 02/27/2023 3:09 AM EST 02/27/2023 3:40 AM EST us Hunter Olivarez MD LAB BLOOD BKR ORDERABL ES Final Result [facility] [address] [place] [address] from Last 3 Months or Most Recently Relevant to Health Maintenance Insurance [address] [place], [place] [address] [place] [facility] [place] [facility] [place] [facility] [facility] [facility] MEDIC[facility] REPLACEMENT Advance Directives For more information, please contact: [phone] (9AM - 5PM [facility], Sunday-Sunday) Documents on File Type Date Recorded Patient Product Consultant Expl anation Healthcare Proxy 02/24/2023 Healthcare Proxy * Full Code (Latest Code Status on File) Date Activated Date Inactivated Comments 02/24/2023 11:41 PM Question Answer Comments Code Status Confirmed With: Patient Healthcare Agents on File Name Relationship [facility] Kayleen Rojas Daughter .Primary Health Care Agent (Proxy form on file) Care Teams Faculty Head Relationship Specialty Start Date End Date Alverto Tejeda MD [address] [place] [address] PCP - General Internal Medicine 02/24/23 Additional Source Comments The information contained in this document represents components of the legal health record. It is not the complete legal health record.[facility]
--- OUTSIDE RECORDS SUMMARY | 2025-02-05 11:04 | XMS_ITS | Encounter Summary ---
Author Organization [facility] Address [address] [place] [address] Phone Care Team Providers Care J2Ee Consultant Name Role Phone Alverto Tejeda MD Primary Care Provider +1- [phone] Encounter Details Date Type Department Care Team (Late st Contact Info) Description 02/26/2023 Procedure Pass [facility] [address] [place] [address] Social History Tobacco Use Types Packs/Day Years [...] documented as of this encounter Care Teams J2Ee Consultant Relationship Specialty Start Date End Date Alverto Tejeda MD [address] [place] [address] PCP - General Internal Medicine 02/24/23 documented as of this encounter Additional Source Comments The information contained in this document represents components of the legal health record. It is not the complete legal health record.[facility]
== END 2025-02-05 09:35 | disposition home or self-care (01) ==
LOC: HO.LAB 09:34
PROVIDERS: Visit Provider Nurse Practitioner Family
DX: N40.0 Benign prostatic hyperplasia without lower urinary tract symptoms (principal); R97.20 Elevated prostate specific antigen [PSA]; Z12.5 Encounter for screening for malignant neoplasm of prostate
CPT/HCPCS: 36415; 84153

== ENCOUNTER 2025-02-17 10:08 | Outpatient (AMB) | payer MEDICARE, MEDICAID, SELFPAY ==
--- NOTE | 2025-02-17 10:14 | A.OFFVIS_ITS ---
Intake Visit Reasons: 6m/PSA Intake Note: Patient is present for 6M/PSA Urology Medication:TAMSULOSIN,FINASTERIDE Antibiotic Allergy:NONE Blood Thinner:APIXABAN TODAY'S PVR:57ML'S Project Manager/Design Manager Required: No Allergies No Known Allergies Allergy (Verified 02/17/25 10:50) Medication List - Last Reconciled 02/17/25 by COLLIN Pritchard- apixaban (Eliquis) 5 mg PO BID 90 days cyclobenzaprine 10 mg PO BID PRN finasteride 5 mg PO DAILY 90 days gabapentin 100 mg PO TID PRN mirtazapine 30 mg PO BEDTIME olanzapine 15 mg PO BEDTIME sertraline 50 mg PO DAILY tamsulosin 0.8 mg (2 x 0.4 mg) PO DAILY 90 days HPI Comments Details: Pedro is a very pleasant 74-year-old male patient of Dr. Harper. 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 He presents to the office today for follow-up of his elevated PSA and history of testicular cancer. In discussion with the patient today he reports to be doing and feeling well. He denies having had any bothersome urinary issues or concerns since his last visit. He reports compliance with Flomax and finasteride as prescribed. He currently denies any bothersome urinary issues or concerns. Recent PSA results reviewed with the patient today as noted and trended below. Previous workup has included a retroperitoneal ultrasound 06/16 noting bilateral kidneys with no calculi or hydronephrosis. Left kidney with multiple benign Bosniak class 1 renal cyst with a single septated Bosniak class 2 cyst which requires no additional follow-up imaging per radiology report. The bladder is well distended and normal. Bilateral ureteral jets are demonstrated. Pre void bladder volume is approximately 180 mL. Postvoid bladder volume is approximately 100 mL. Prostate is enlarged measuring approximately 66 mL with a hypertrophied median lobe. 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 He reports having followed up with oncology for h is longstanding history of recurrent cancers. He denies any known family history of prostate cancer. Patient with previous scrotal ultrasound 06/16 noting right testicle surgically absent. Normal appearing left testicle. Small left hydrocele. He currently denies any bothersome urinary issues or concerns. He reports a longstanding history of lower urinary tract symptoms however feels Flomax has been helpful with these issues. He otherwise denies incontinence, nocturia, hematuria, dysuria, foul smelling urine, flank pain, fever, and or chills. In review of patient's chart it appears Oncology has ordered tumor markers as noted below. Unable to obtain urine for urinalysis today however PVR 57 mL. All questions were answered. He otherwise offers no other issues or concerns at this time. Lactate Dehydrogenase: 02/15 262, 10/16 168, 11/17 151 Alpha Fetoprotein: 02/15 3.7, 10/16 4.7, 11/17 4.2 Tumor Marker HC/23 <5 PFSH Medical History Depression PTSD (post-traumatic stress disorder) Anxiety Schizophrenia Venous thromboembolism Throat cancer Cancer of neck Testicular cancer Surgical History H/O shoulder replacement (~11/24/20) Family History Father Lung cancer Mother Lung cancer Social History Household Members: Other Housing: Other Housing Other:: [facility] Patient Tobacco Use Status: Never used Tobacco Substance Use Type: Marijuana service: No Current occupational status: retired Review of Systems Const Reports as per HPI Eyes Reports no additional complaints ENT Reports as per HPI Card Reports as per HPI Resp Reports as per HPI GI Reports no additional complaints Reports as per HPI Musc Reports no additional complaints Neuro Reports no additional complaints Psych Reports no additional complaints Endo Reports no additional complaints Izaiah/Lymph Reports as per HPI Aller/Immun Reports no additional complaints Physical Exam Const General: cooperative, healthy appearing, comfortable, no acute distress, well developed, alert and awake Orientation/consciousness: patient oriented x3 Limitations: no limitations HEENT Head: Yes normal to inspection, Yes normocephalic and Yes atraumatic Ears: hearing grossly normal bilaterally Eyes General: appearance normal, both eyes and all related structures Neck Neck: Yes normal visual inspection and Yes trachea midline Chest Chest palpation & inspection: normal inspection of the chest Resp Effort & Inspection: normal respiratory effort and able to speak in complete sentences Cardio Rate: regular rate GI Inspection: Yes normal to inspection General: Yes no CVA tenderness Penis: normal penis and circumcised Meatus: meatus normal Scrotum: other Testes: other (right sided orchiectomy) Back/Spine/Pelvis Back: no CVA tenderness Skin General skin exam: no rashes or lesions noted Neuro General: patient oriented x3 Extrem General: Yes normal to inspection Psych Appearance: grossly normal and well kempt Mental Status: mental status grossly normal Speech and movement: Normal speech and movement present and Clear speech present Affect: normal affect Attitude: cooperative Thought process: Normal thought process present Thought content: Normal thought content present Insight: Fair insight present (Psych) Judgement: Fair judgement present (Psych) Office Procedures Post Void Residual Post Residual Void Post Void Residual (PVR): 57 [id number]-[id number] Void Residual by ultrasound Assessment & Plan Assessment & Plan (1) Elevated PSA: Code(s): R97.20 - Elevated prostate specific antigen [PSA] Category: Medical (2) Enlarged prostate: Code(s): N40.0 - Benign prostatic hyperplasia without lower urinary tract symptoms Category: Medical (3) Renal cyst: Code(s): N28.1 - Cyst of kidney, acquired Category: Medical (4) Incomplete bladder emptying: Code(s): R33.9 - Retention of urine, unspecified Category: Medical (5) Testicular carcinoma: Code(s): C62.90 - Malignant neoplasm of unspecified testis, unspecified whether descended or undescended Category: Medical Qualifiers: Laterality: unspecified laterality Qualified Code(s): C62.90 - Malignant neoplasm of unspecified testis, unspecified whether descended or undescended Plan Unable to obtain urine for urinalysis today as patient unable to void however PVR 57 mL Recent PSA results reviewed with the patient today; as noted above. Continue Flomax and finasteride as prescribed. Patient currently denies any bothersome urinary issues or concerns. He reports be happy with current voiding parameters. All questions were answered Will continue with surveillance monitoring. Will obtain PSA in 1 year Continue to follow-up with oncology as planned Follow-up in 1 year with PSA and PVR to be completed prior; or sooner with any issues, concerns, and or questions. Orders: Orders Prostate Specific Antigen 6 Months N40.0 - Benign prostatic hyperplasia without lower urinary tract symptoms, R97.20 - Elevated prostate specific antigen [PSA] Prostate Specific Antigen 1 Year N40.0 - Benign prostatic hyperplasia without lower urinary tract symptoms, R33.9 - Retention of urine, unspecified, R97.20 - Elevated prostate specific antigen [PSA] Patient Instructions: The patient had an opportunity to ask questions regarding the treatment plan. All questions were answered. Physical exam, labs, and imaging were discussed and reviewed in detail. As well as risks, benefits, and discussion of treatment choices. No major barriers to understanding were identified. The patient expressed understanding and agreement with the above treatment plan. The patient was made aware they should contact our office by phone for worsening of their current condition, the appearance of new symptoms, or with any questions or concerns. Compliance is encouraged with any medications and follow up testing that is ordered. It is a privilege to be allowed the opportunity to participate in? your urological care.? Again, if you have any questions or concerns If you have any questions or concerns please do not hesitate to contact me. The office is [phone]. This note is constructed using voice recognition software. While every effort has been made to ensure accuracy steersman errors may have been included. Yours sincerely, ARTHUR Pritchard Coding Level of Care Code Est Pt Level 3 (28488) Complex visit Add On G2211 Diagnoses Elevated PSA R97.20 Enlarged prostate N40.0 Renal cyst N28.1 Incomplete bladder emptying R33.9 Carcinoma of testis, unspecified laterality C62.90 Laterality: unspecified laterality CPT Codes Post Residual Void - PVR CPT Code: 71890-[id number] Void Residual by ultrasound ([id number])
--- OUTSIDE RECORDS SUMMARY | 2025-02-17 12:16 | XMS_ITS | Encounter Summary ---
Author Organization [facility] Address [address] [place] [address] Phone Care Team Providers Care Truck Dock Material Mover Name Role Phone Alverto Tejeda MD Primary Care Provider +1- [phone] Encounter Details Date Type Department Care Team (Late st Contact Info) Description 01/31/2024 Transcribe Orders [facility] Specimen Processing [address] [place] [address] Alverto Tejeda MD [address] [place] [address] Social History Tobacco Use Types Packs/Day Years [...] on filedocumented in this encounter Care Teams Truck Dock Material Mover Relationship Specialty Start Date End Date Alverto Tejeda MD [address] [place] [address] PCP - General Internal Medicine 02/24/23 documented as of this encounter Additional Source Comments The information contained in this document represents components of the legal health record. It is not the complete legal health record.[facility]
--- OUTSIDE RECORDS SUMMARY | 2025-02-17 12:16 | XMS_ITS | Clinical Summary ---
Author Organization [facility] Address [address] [place] [address] Phone Care Team Providers Care Packing House Laborer Name Role Phone Alverto Tejeda MD Primary Care Provider +1- [phone] Allergies No known active allergies Medications OLANZapine [...] EST) SODIUM 142 133 - 146 mmol/L [facility] CHLORIDE 107 96 - 108 mmol/L [facility] POTASSIUM 4.2 3.3 - 5.1 mmol/L [facility] CO2 22 21 - 35 mmol/L [facility] BUN 23(H) 6 - 19 mg/dL [facility] CREATININE 0.60 0.5 - 1.5 mg/dL [facility] GLUCOSE 145(H) 70 - 99 mg/dL [facility] CALCIUM 8.5 8.4 - 10.3 mg/dL [facility] EGFR 104 >59 mL/min/1.7 3m2 [facility] Comment:Estimated glomerular filtration rate calculated using the CKD-EPI refit equation. ANION GAP 17 10 - 20 mmol/L [facility] Blood 02/27/2023 3:09 AM EST 02/27/2023 3:40 AM EST us Hunter Olivarez MD LAB BLOOD BKR ORDERABL ES Final Result [facility] [address] [place] [address] from Last 3 Months or Most Recently Relevant to Health Maintenance Insurance [address] [place], [place] [address] MEDIC[facility] REPLACEMENT [facility] MED[facility]PLACEMENT [facility] REPL[facility]EMENT [facility] MEDICARE REPLACEMENT [facility] MEDICARE REPLACEMENT [facility] MEDICARE REPLACEMENT Advance Directives For more information, please contact: [phone] (9AM - 5PM [facility], Sunday-Sunday) Documents on File Type Date Recorded Patient Pony Ride Attendant Expl anation Healthcare Proxy 02/24/2023 Healthcare Proxy * Full Code (Latest Code Status on File) Date Activated Date Inactivated Comments 02/24/2023 11:41 PM Question Answer Comments Code Status Confirmed With: Patient Healthcare Agents on File Name Relationship [facility] Kayleen Rojas Daughter .Primary Health Care Agent (Proxy form on file) Care Teams Packing House Laborer Relationship Specialty Start Date End Date Alverto Tejeda MD [address] [place] [id number] PCP - General Internal Medicine 02/24/23 Additional Source Comments The information contained in this document represents components of the legal health record. It is not the complete legal health record.[facility]
--- OUTSIDE RECORDS SUMMARY | 2025-02-17 12:16 | XMS_ITS | Encounter Summary ---
Author Organization [facility] Address [address] [place] [address] Phone Care Team Providers Care Policyholder Information Clerk Name Role Phone Alverto Tejeda MD Primary Care Provider +1- [phone] Encounter Details Date Type Department Care Team (Late st Contact Info) Description 02/24/2023 Procedure Pass [facility], Ct Scan - [address] [address] Social History Tobacco Use Types Packs/Day Years [...] 02/24/2023 11:38 PM Roger Garcia RN * [place] Suicide Severity Rating Scale (Screener/Recent Self-Report) Question [...] documented as of this encounter Care Teams Policyholder Information Clerk Relationship Specialty Start Date End Date Alverto Tejeda MD [address] [place] [id number] PCP - General Internal Medicine 02/24/23 documented as of this encounter Additional Source Comments The information contained in this document represents components of the legal health record. It is not the complete legal health record.[facility]
--- OUTSIDE RECORDS SUMMARY | 2025-02-17 12:16 | XMS_ITS | Encounter Summary ---
Author Organization [facility] Address [address] [place] [address] Phone Care Team Providers Care Marketing Sales Supervisor Name Role Phone Alverto Tejeda MD Primary Care Provider +1- [phone] Encounter Details Date Type Department Care Team (Late st Contact Info) Description 02/24/2023 Procedure Pass [facility] [address] [place] [address] Social History Tobacco Use Types Packs/Day Years [...] 02/24/2023 11:38 PM Roger Garcia RN * [place] Suicide Severity Rating Scale (Screener/Recent Self-Report) Question [...] documented as of this encounter Care Teams Marketing Sales Supervisor Relationship Specialty Start Date End Date Alverto Tejeda MD [address] [place] [id number] PCP - General Internal Medicine 02/24/23 documented as of this encounter Additional Source Comments The information contained in this document represents components of the legal health record. It is not the complete legal health record.[facility]
--- OUTSIDE RECORDS SUMMARY | 2025-02-17 12:16 | XMS_ITS | Encounter Summary ---
Author Organization [facility] Address [address] [place] [address] Phone Care Team Providers Care Superintendent Drilling Name Role Phone Alverto Tejeda MD Primary Care Provider +1- [phone] Encounter Details Date Type Department Care Team (Late st Contact Info) Description 02/28/2023 Procedure Pass [facility] [address] [place] [address] Social History Tobacco Use Types Packs/Day Years [...] documented as of this encounter Care Teams Superintendent Drilling Relationship Specialty Start Date End Date Alverto Tejeda MD [address] [place] [address] PCP - General Internal Medicine 02/24/23 documented as of this encounter Additional Source Comments The information contained in this document represents components of the legal health record. It is not the complete legal health record.[facility]
--- OUTSIDE RECORDS SUMMARY | 2025-02-17 12:16 | XMS_ITS | Encounter Summary ---
Author Organization [facility] Address [address] [place] [address] Phone Care Team Providers Care Accounting Clerk Name Role Phone Alverto Tejeda MD Primary Care Provider +1- [phone] Encounter Details Date Type Department Care Team (Late st Contact Info) Description 02/26/2023 Procedure Pass [facility] [address] [place] [address] Social History Tobacco Use Types Packs/Day Years [...] documented as of this encounter Care Teams Accounting Clerk Relationship Specialty Start Date End Date Alverto Tejeda MD [address] [place] [address] PCP - General Internal Medicine 02/24/23 documented as of this encounter Additional Source Comments The information contained in this document represents components of the legal health record. It is not the complete legal health record.[facility]
== END 2025-02-17 10:53 | disposition home or self-care (01) ==
LOC: HO.HUSH 10:09
PROVIDERS: PCP Internal Medicine; Visit Provider Nurse Practitioner Family
DX: R97.20 Elevated prostate specific antigen [PSA] (principal); N40.0 Benign prostatic hyperplasia without lower urinary tract symptoms; N28.1 Cyst of kidney, acquired; R33.9 Retention of urine, unspecified; C62.90 Malignant neoplasm of unspecified testis, unspecified whether descended or undescended
CPT/HCPCS: 99213; G2211

== ENCOUNTER → 2025-02-17 10:08 | Outpatient (BNVA) | payer MEDICARE, MEDICAID, SELFPAY | PROVIDERS: PCP Internal Medicine; Visit Provider Nurse Practitioner Family | DX: R97.20 Elevated prostate specific antigen [PSA] (principal); N40.0 Benign prostatic hyperplasia without lower urinary tract symptoms; N28.1 Cyst of kidney, acquired; R33.9 Retention of urine, unspecified; C62.90 Malignant neoplasm of unspecified testis, unspecified whether descended or undescended | CPT/HCPCS: 51798; 99212 ==